=== PATIENT | male | born 1950 | race Asian ===

== ENCOUNTER 2017-06-27 08:00 | Inpatient (IN) | payer OTHER ==
[~2017-06-27] VITALS: Ht 157.5 cm; Wt 62.9 kg
[~2017-06-27 08:00] MED LIST: ALBU2.5V5 INH; BUDE10.2 INH; CLOP75TA PO; Doxycycline Hyclate PO; FURO-68 PO; LISI-338 PO; LISI20TA PO; METO-239 PO; MONT10TA9 PO; POTA20TA4 PO; PROAIR HFA8.5 GM INH; SIMV20TA3 PO
--- NOTE | 2017-06-27 08:03 | PHYS DOC ---
Past Medical History Past Medical History: Asthma, CAD, COPD, Hypertension, PA, Other Additional Past Medical Histor: AORTIC STENOSIS Past Surgical History: Angioplasty, Other Additional Past Surgical Histo: RIGHT BKA Alcohol Use: None Drug Use: None Adult General Chief Complaint Chief Complaint: SHORTNESS OF BREATH HPI HPI Patient is a 66 year old male who presents with shortness breath. He states his been going on for several weeks and this morning he got worse. He has been having a cough that's been productive with white sputum for several weeks. Last night he tried breathing treatment that helped a little bit. Upon arrival EMS noted that he was breathing proximal to 30 times a minute and his O2 sat on room air was 93%. They gave him a DuoNeb and he felt improvement. He denies any fevers chills nausea or vomiting. He did become nauseated on the EMS ride over here however that just started while he was in the truck. According to family he 's been having this cough for several weeks and is been using his inhalers especially at night several times. His blood pressures been on the lower end of normal and his daughters told him to take his blood pressure before he takes his medicine and over the last 4 days he's not been taking any blood pressure medicines. He denies any chest pain nausea vomiting or diarrhea. Review of Systems Review of Systems Constitutional: Denies fever or chills [] Eyes: Denies change in visual acuity, redness, or eye pain [] HENT: Denies nasal congestion or sore throat [] Respiratory: Denies cough or shortness of breath [] Cardiovascular: No additional information not addressed in HPI [] GI: Denies abdominal pain, nausea, vomiting, bloody stools or diarrhea [] : Denies dysuria or hematuria [] Musculoskeletal: Denies back pain or joint pain [] Integument: Denies rash or skin lesions [] Neurologic: Denies headache, focal weakness or sensory changes [] Endocrine: Denies polyuria or polydipsia [] All other systems were reviewed and found to be within normal limits, except as documented in this note. Current Medications Current Medications Current Medications Medications (Trade) Dose Ordered Sig/Lucía Start Time Stop Time Status Last Admin Dose Admin Albuterol/ Ipratropium (Duoneb) 3 ml 1X ONCE 06/27/17 08:15 06/27/17 08:16 DC 06/27/17 08:10 3 ML Azithromycin 250 ml @ 250 mls/hr 1X ONCE 06/27/17 09:45 06/27/17 10:44 Methylprednisolone Sodium Succinate (SOLU-Medrol 125MG VIAL) 125 mg 1X ONCE 06/27/17 08:15 06/27/17 08:16 DC 06/27/17 08:13 125 MG Allergies Allergies Allergies Coded Allergies Type Severity Reaction Last Updated Verified No Known Drug Allergies 05/16/15 No Physical Exam Physical Exam Constitutional: Well developed, well nourished, no acute distress, non-toxic appearance. [] HENT: Normocephalic, atraumatic, bilateral external ears normal, oropharynx moist, no oral exudates, nose normal. [] Eyes: PERRLA, EOMI, conjunctiva normal, no discharge. [] Neck: Normal range of motion, no tenderness, supple, no stridor. [] Cardiovascular:Heart rate regular rhythm, no murmur [] Lungs & Thorax: Bilateral breath sounds decreased the bases with moderate expiratory wheezing, worse on the right Abdomen: Bowel sounds normal, soft, no tenderness, no masses, no pulsatile masses. [] Skin: Warm, dry, no erythema, no rash. [] Back: No tenderness, no CVA tenderness. [] Extremities: No tenderness, no cyanosis, no clubbing, ROM intact, no edema. [] Neurologic: Alert and oriented X 3, normal motor function, normal sensory function, no focal deficits noted. [] Psychologic: Affect normal, judgement normal, mood normal. [] Current Patient Data Vital Signs Vital Signs Date Time Temp Pulse Resp B/P (MAP) Pulse Ox O2 Delivery O2 Flow Rate FiO2 06/27/17 08:14 96 Room Air 06/27/17 08:00 98.0 95 24 150/86 (107) 98.0 Lab Values Laboratory Tests Test 06/27/17 07:55 06/27/17 08:32 White Blood Count 9.9 x10^3/uL (4.0-11.0) Red Blood Count 4.91 x10^6/uL (4.30-5.70) Hemoglobin 14.9 g/dL (13.0-17.5) Hematocrit 43.5 % (39.0-53.0) Mean Corpuscular Volume 89 fL (79-100) Mean Corpuscular Hemoglobin 30 pg (25-35) Mean Corpuscular Hemoglobin Concent 34 g/dL (31-37) Red Cell Distribution Width 12.9 % (11.5-14.5) Platelet Count 140 x10^3/uL (140-400) Neutrophils (%) (Auto) 63 % (31-73) Lymphocytes (%) (Auto) 12 % (24-48) L Monocytes (%) (Auto) 8 % (0-9) Eosinophils (%) (Auto) 16 % (0-3) H Basophils (%) (Auto) 1 % (0-3) Neutrophils # (Auto) 6.2 x10^3uL (1.8-7.7) Lymphocytes # (Auto) 1.2 x10^3/uL (1.0-4.8) Monocytes # (Auto) 0.8 x10^3/uL (0.0-1.1) Eosinophils # (Auto) 1.6 x10^3/uL (0.0-0.7) H Basophils # (Auto) 0.1 x10^3/uL (0.0-0.2) Segmented Neutrophils % 57 % (35-66) Band Neutrophils % 5 % (0-9) Lymphocytes % 17 % (24-48) L Monocytes % 4 % (0-10) Eosinophils % 16 % (0-5) H Basophils % 1 % (0-3) Platelet Estimate Adequate (ADEQUATE) Prothrombin Time 13.1 SEC (11.7-14.0) Prothrombin Time INR 1.1 (0.8-1.1) Sodium Level 139 mmol/L (136-145) Potassium Level 4.2 mmol/L (3.5-5.1) Chloride Level 103 mmol/L (98-107) Carbon Dioxide Level 24 mmol/L (21-32) Anion Gap 12 (6-14) Blood Urea Nitrogen 46 mg/dL (8-26) H Creatinine 1.4 mg/dL (0.7-1.3) H Estimated GFR (Cockcroft-Gault) 50.7 Glucose Level 103 mg/dL (70-99) H Lactic Acid Level 1.3 mmol/L (0.4-2.0) Calcium Level 9.1 mg/dL (8.5-10.1) Magnesium Level 2.3 mg/dL (1.8-2.4) Total Bilirubin 1.2 mg/dL (0.2-1.0) H Direct Bilirubin 0.3 mg/dL (0.0-0.2) H Aspartate Amino Transferase (AST) 26 U/L (15-37) Alanine Aminotransferase (ALT) 26 U/L (16-63) Alkaline Phosphatase 62 U/L (46-116) Creatine Kinase 479 U/L (39-308) H Creatine Kinase MB (Mass) 6.0 ng/mL (0.0-3.6) H Creatine Kinase MB Relative Index 1.3 % (0-4) Troponin I Quantitative < 0.017 ng/mL (0.000-0.055) [id number]-Type Natriuretic Peptide 485 pg/mL (0-124) H Total Protein 7.9 g/dL (6.4-8.2) Albumin 4.1 g/dL (3.4-5.0) Lipase 144 U/L (73-393) Thyroid Stimulating Hormone (TSH) 2.438 uIU/mL (0.358-3.74) Urine Collection Type Void Urine Color Yellow Urine Clarity Clear Urine pH 5.5 Urine Specific [place] 1.020 Urine Protein Negative mg/dL (NEG-TRACE) Urine Glucose (UA) Negative mg/dL (NEG) Urine Ketones (Stick) Trace mg/dL (NEG) Urine Blood Negative (NEG) Urine Nitrite Negative (NEG) Urine Bilirubin Negative (NEG) Urine Urobilinogen Dipstick 0.2 mg/dL (0.2 mg/dL) Urine Leukocyte Esterase Negative (NEG) Urine RBC Occ /HPF (0-2) Urine WBC Occ /HPF (0-4) Urine Squamous Epithelial Cells Few /LPF Urine Bacteria Few /HPF (0-FEW) Urine Mucus Mod /LPF Urine Opiates Screen Neg (NEG) Urine Methadone Screen Neg (NEG) Urine Barbiturates Neg (NEG) Urine Phencyclidine Screen Neg (NEG) Urine Amphetamine/Methamphetamine Neg (NEG) Urine Benzodiazepines Screen Neg (NEG) Urine Cocaine Screen Neg (NEG) Urine Cannabinoids Screen Neg (NEG) Urine Ethyl Alcohol Neg (NEG) Laboratory Tests 06/27/17 07:55 Laboratory Tests 06/27/17 07:55 EKG EKG EKG shows sinus rhythm with rate of 88 bpm without any concerning ST elevations elevations, T-wave inversion noted in 1 and aVL, V4 V5 V6, left axis deviation noted, QTC 412, as interpreted by me. EKG similar to one performed on June Radiology/Procedures Radiology/Procedures [facility] [address] [place] [address] IMAGING REPORT Signed PATIENT: KAL DUBON ACCOUNT: [id number] : 1950 LOCATION: ER AGE: 66 SEX: M EXAM STATUS: REG ER ORD. PHYSICIAN: DILCIA RIVERA MD REASON: shortness of air PROCEDURE: PORTABLE CHEST 1V Single view chest History:shortness of air An AP view of the chest is submitted. Comparison: 06/11/2016. Findings: There is transcatheter aortic valve replacement. There is no significant infiltrate, pleural effusion, or pneumothorax. The pericardial cardiac silhouette is within normal limits in size. The trachea is in the midline. No acute osseous abnormality is identified. Impression: 1. No acute radiographic abnormality is identified. DICTATED and SIGNED BY: NAMITA ELY MD DATE: 06/27/17 0842 CC: DILCIA RIVERA MD; ALLEGRA REYNOLDS MD ~ <Conclusion> Left ventricle systolic function is moderate to severely impaired. EF 30-35% There is severe hypokinesis in the mid-distal septum and anterior young. [place] appears akinetic. Doppler and Color Flow revealed moderate aortic regurgitation. There is severe valvular aortic stenosis. Calculated aortic valve area is 0.9 cm2 with maximum pressure gradient of 50.55 mmHg and mean pressure gradient of 34.39 mmHg. Peak velocity at 4 m/s. Doppler and Color Flow revealed mild mitral regurgitation. DICTATED and SIGNED BY: OMA WILLINGHAM MD DATE: 06/12/16 1503 Impressions: soa COPD CHF Status post aortic valve replacement Coronary artery disease with stents Hypertension Dyslipidemia Course & Med Decision Making Course & Med Decision Making Pertinent Labs and Imaging studies reviewed. (See chart for details) EKG is similar to one that was performed for a year ago. He denies any chest pain. His labs do not show any acute abnormality's. His chest x-rays negative. He received DuoNeb nebs, Solu-Medrol and will start azithromycin. I believe he is likely has a COPD exacerbation at this time. We'll consult pulmonary and cardiology. Spoke with Dr. Chambers who is agreeable to admit the patient. He is in stable condition at this time. Dragon Disclaimer Dragon Disclaimer This electronic medical record was generated, in whole or in part, using a voice recognition dictation system. Departure Departure Impression: Primary Impression: COPD exacerbation Disposition: ADMITTED INPATIENT Admitting Physician: Lloyd Chambers Condition: STABLE Referrals: ALLEGRA REYNOLDS MD (PCP) DILCIA RIVERA MD Jun 27, 2017 08:02
[2017-06-27] MEDS ORDERED: methylPREDNISolone SOD SUCC PF 125 MG/2 ML VIAL. IV ONE (08:15)
[2017-06-27] MEDS ORDERED: IPRATRPIUM/ALBUTEROL 0.5/2.5MG 3 ML NEBU. NEB ONE (08:15)
[2017-06-27 08:23] LABS: BASO # 0.1 x10^3/uL (0.0-0.2); BASO % 1 % (0-3); EOS % 16 % (0-3); HEMATOCRIT 43.5 % (39.0-53.0); HEMOGLOBIN 14.9 g/dL (13.0-17.5); LYMPH # 1.2 x10^3/uL (1.0-4.8); LYMPH % 12 % (24-48); MEAN CORPUSCULAR HEMOGLOBIN 30 pg (25-35); MEAN CORPUSCULAR HGB CONC 34 g/dL (31-37); MEAN CORPUSCULAR VOLUME 89 fL (79-100); MONO % 8 % (0-9); NEUT % 63 % (31-73); PLATELET COUNT 140 x10^3/uL (140-400); RED BLOOD COUNT 4.91 x10^6/uL (4.30-5.70); RED CELL DISTRIBUTION WIDTH 12.9 % (11.5-14.5); WHITE BLOOD COUNT 9.9 x10^3/uL (4.0-11.0)
[2017-06-27 08:31] LABS: INR 1.1 (0.8-1.1); PROTHROMBIN TIME PATIENT 13.1 SEC (11.7-14.0)
[2017-06-27 08:32] LABS: CALCIUM 9.1 mg/dL (8.5-10.1); CREATININE 1.4 mg/dL (0.7-1.3); GFR 50.7; POTASSIUM 4.2 mmol/L (3.5-5.1)
[2017-06-27 08:37] LABS: ALBUMIN 4.1 g/dL (3.4-5.0); DIRECT BILIRUBIN 0.3 mg/dL (0.0-0.2); MAGNESIUM 2.3 mg/dL (1.8-2.4); TOTAL BILIRUBIN 1.2 mg/dL (0.2-1.0); TOTAL PROTEIN 7.9 g/dL (6.4-8.2)
[2017-06-27 08:44] LABS: BILIRUBIN,URINE NEGATIVE (NEG); GLUCOSE,URINE NEGATIVE (NEG); NITRITE,URINE NEGATIVE (NEG); PH,URINE 5.5; PROTEIN,URINE NEGATIVE (NEG-TRACE); UROBILINOGEN,URINE 0.2 mg/dL (0.2 mg/dL)
--- NOTE | 2017-06-27 08:50 | RAD ---
Single view chest History:shortness of air An AP view of the chest is submitted. Comparison: 06/11/2016. Findings: There is transcatheter aortic valve replacement. There is no significant infiltrate, pleural effusion, or pneumothorax. The pericardial cardiac silhouette is within normal limits in size. The trachea is in the midline. No acute osseous abnormality is identified. Impression: 1. No acute radiographic abnormality is identified.
[2017-06-27 08:57] LABS: BARBITURATES NEG (NEG); BENZODIAZEPINES NEG (NEG); CANNABINOIDS NEG (NEG); COCAINE NEG (NEG); METHADONE NEG (NEG); OPIATES NEG (NEG); PHENCYCLIDINE NEG (NEG)
[2017-06-27 08:58] LABS: BACTERIA,URINE FEW /HPF (0-FEW); RBC,URINE OCC /HPF (0-2); SQUAMOUS EPITHELIAL CELL,UR FEW /LPF; WBC,URINE OCC /HPF (0-4)
[2017-06-27 09:22] LABS: % BASOS 1 % (0-3); % EOS 16 % (0-5)
[2017-06-27 09:23] LABS: PLT ESTIMATE ADEQUATE (ADEQUATE)
[2017-06-27] MEDS ORDERED: ONDANSETRON PF 4 MG/2 ML VIAL. IV PRN (09:45)
[2017-06-27] MEDS ORDERED: AZITHRMYCN 500MG IVPB FOR OMNI 250 ML IV ONE (09:45)
[2017-06-27] MEDS ORDERED: ALBUTEROL SULFATE 2.5 MG/3 ML NEBU. NEB PRN (09:45)
[2017-06-27] MEDS ORDERED: ALBUTEROL SULFATE INH PRN (10:00)
[2017-06-27] MEDS ORDERED: SPIR25TA3 PO (10:02)
--- NOTE | 2017-06-27 10:18 | PDOC ---
Provider Note Provider Note Patient seen. History and Physical dictated. See dictation#[id number] AYANNA DUMONT MD Jun 27, 2017 10:18
--- NOTE | 2017-06-27 10:50 | HP ---
ADMIT DATE: 06/27/2017 DICTATING PHYSICIAN: Lloyd Chambers MD ADMITTING PHYSICIAN: Franco Sullivan MD HISTORY OF PRESENT ILLNESS: This 66-year-old male has been having cough, which is mainly dry with worsening dyspnea for the last 4 weeks. He did not have any fever or chills. Mucus is scanty and mostly cough is dry. Mucus is clear most of the times. He denies any fever, chills, nausea, vomiting. As per family for the last 4 days, his blood pressures have been in low 80s and 90s systolic, and he has been holding his lisinopril and metoprolol for the last 4 days. However, as his dyspnea got worse, he was brought to the Emergency Room today. In the Emergency Room, the patient was noted to have exacerbation of COPD. Chest x-ray was negative for any acute changes. The patient was given IV Solu-Medrol and breathing treatment in the Emergency Room and was admitted for further evaluation and management. SYSTEMS REVIEW: At present time, the patient is complaining of dry cough, congestion and fatigue. He denies any fever, chills, nausea, vomiting, diarrhea, constipation, leg pain, swelling of the left leg, headaches, body aches or any other issues. Translation was done by the family member. Other systems reviewed and are negative. As per family, the patient gets sick every June with cough and congestion. PAST MEDICAL HISTORY: The patient was last admitted here in 06/2016. At that time, the patient was noted to have critical aortic stenosis and was referred to [facility] [place] for transaortic valve replacement. He also has a history of hypertension, COPD, congestive heart failure, coronary artery disease with previous stent in LAD. He has a history of congestive failure with ejection fraction of 30% on previous echocardiogram. PAST SURGICAL HISTORY: Right below-knee amputation with prosthesis, cardiac catheterization and LAD stent in the past, transaortic valve replacement in 06/2016 at [facility] [place]. SOCIAL HISTORY: The patient smoked for 20 years, he quit 21 years ago. No history of alcoholism or drug abuse. ALLERGIES: None known any. MEDICATIONS: I have reviewed the medications. As noted earlier, lisinopril and metoprolol were held for the last 4 days per family members because of low blood pressure. FAMILY HISTORY: Reviewed and noncontributory at this time. PHYSICAL EXAMINATION: VITAL SIGNS: Temperature 98, pulse 95 per minute, respirations 24 per minute, blood pressure 150/86, O2 sats 94% on room air. GENERAL: The patient is alert, oriented, very weak and chronically ill and in moderate respiratory distress. He is very tired and falls asleep quickly. EYES: Pupils reacting to light. Conjunctivae pale. Sclerae muddy. HEENT: Throat congested. SKIN: Warm and dry. There is no cyanosis. NECK: Supple. JVP normal. No thyromegaly. Trachea midline. LUNGS: Bilateral wheezing. CARDIOVASCULAR: S1, S2 regular. ABDOMEN: Soft, nontender, no guarding, no rigidity. Bowel sounds present. EXTREMITIES: The patient has a right below-knee amputation with prosthesis. Left lower extremity, no swelling, calf tenderness, or cyanosis. CENTRAL NERVOUS SYSTEM: Very weak and sleepy, not communicating much, most of the information obtained from the family. LABORATORY DATA: WBC count 9.9, hemoglobin 14.9, platelet count is 440,000, MCV 89. INR 1.1. Sodium 139, potassium 4.2, BUN 46, creatinine 1.4. Total bilirubin 1.2. CK 479, troponin less than 0.017. BNP is 485, total protein 7.9, albumin 4.1, lipase 144. TSH 2.438. UA is negative except for occasional rbc's, and wbc's, few bacteria. Urine drug screen is negative. Chest x-ray does not show any acute changes. IMPRESSION: 1. Acute exacerbation of chronic obstructive pulmonary disease. Clinically, the patient does not have any viral infection. He has been started on Zithromax in the Emergency Room. 2. Acute renal failure, creatinine is 1.4, BUN is 46. We do not have his baseline creatinine available at this time. He may have chronic kidney disease; last year, his creatinine was 1.4 on admission, but at that time, he was also very ill. 3. Hypertension. 4. Recent hypotension at home. 5. Coronary artery disease with history of LAD stent placement. 6. Right below-knee amputation. 7. Hyperlipidemia. 8. Systolic congestive heart failure with ejection fraction of 30-35% previously. 9. History of critical aortic stenosis with a transaortic valve replacement at [facility] [place] in 06/2016. PLAN: Condition and treatment discussed with the patient and the family extensively. I will start him on IV steroids, continue Zithromax. Consult Dr. Broderick for pulmonary evaluation and management. Consult [facility] for cardiology evaluation and management. For details, please refer to the orders. Recheck labs in a.m. I will hold lisinopril and metoprolol at this time. Because of his persistent cough previously, it would be better to probably switch him to losartan when it is restarted. I will also hold Lasix and potassium at this time and monitor renal function. I will not give any IV fluids as at this time, but just hold diuretics and see how he does. For details, please refer to the orders. LLOYD CHAMBERS MD DR: FAVIOLA/brandon JOB#: [id number] / [id number] Franco Mayorga MD
[2017-06-27] MEDS: IPRATRPIUM/ALBUTEROL 0.5/2.5MG 3 ML NEBU. NEB SCH ×3 (11:02→19:26)
[2017-06-27 11:11] VITALS: BP 105/68
--- NOTE | 2017-06-27 11:35 | EKG ---
[facility] [address] [place] [address] Test Date: 2017-06-27 Test Time: 08:07:43 Pat Name: KAL DUBON Department: Room: 563 1 Gender: M Miter Cutter: : 1950 Requested By: DILCIA RIVERA Order Number: [id number] Reading MD: Robbie Pires MD Measurements Intervals [place] Rate: 88 P: 47 NV: 176 QRS: 0 QRSD: 80 T: 129 QT: 338 QTc: 412 Interpretive Statements SINUS RHYTHM CONSISTENT WITH ANTERIOR INFARCT Electronically Signed On 06-27-2017 15:51:22 NET COORDINATOR by Robbie Pires MD
[2017-06-27] MEDS: CLOPIDOGREL BISULFATE 75 MG TABLET PO SCH (11:42)
[2017-06-27] MEDS: METOPROLOL SUCC 24HR ER 25 MG TAB.ER.24H. PO SCH (11:42)
[2017-06-27] MEDS: methylPREDNISolone SOD SUCC PF 125 MG/2 ML VIAL. IV SCH (13:59)
[2017-06-27 14:56] VITALS: BP 124/69
--- NOTE | 2017-06-27 16:24 | PDOC2 ---
CARDIOLOGY CONSULT NOTE CHEIF COMPLAINT: Cough and dyspnea Problems: HPI: 66-year-old man well-known to us from his previous admission who comes into the hospital with the frequent coughing and some mild dyspnea. Denies any specific angina. He does have some chest tightness when coughing. No syncope or palpitations. Reports compliance with his medications. No significant lower extremity edema, orthopnea or PND. He has struggled with chronic coughing issues for quite some time. Previously prior to his aortic valve being replaced it was felt that his dyspnea and coughing may have been related to his aortic stenosis. Ultimately, even after his aortic valve replacement he is still struggled with intermittent coughing dyspnea. Reports compliance with his medications. He does not smoke. PMHX: 1. Coronary artery disease status post PCI to the LAD remotely with patent stent last year and cardiac catheterization 2. Severe aortic stenosis status post transcatheter aortic valve replacement with Cira 3. PAD s/p amputation of the RLE 4. 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 Possible COPD/Chronic cough SOCHX: No alcohol, tobacco or illicit drug use. FAMHX: Noncontributory. CURRENT MEDS: Current Medications Medications (Trade) Dose Ordered Sig/Lucía Start Time Stop Time Status Last Admin Dose Admin Acetaminophen (Tylenol) 650 mg PRN Q6HRS PRN 06/27/17 10:00 Albuterol Sulfate (Ventolin Neb Soln) 2.5 mg PRN Q6HRS PRN 06/27/17 09:45 Albuterol/ Ipratropium (Duoneb) 3 ml RTQID 06/27/17 12:00 06/27/17 14:57 3 ML Azithromycin 250 ml @ 250 mls/hr 1X ONCE 06/27/17 09:45 06/27/17 10:44 DC 06/27/17 09:55 250 MLS/HR Clopidogrel Bisulfate (Plavix) 75 mg DAILY 06/27/17 11:00 06/27/17 11:42 75 MG Guaifenesin (Mucinex) 600 mg BID 06/27/17 11:00 06/27/17 11:42 600 MG Methylprednisolone Sodium Succinate (SOLU-Medrol 125MG VIAL) 60 mg [id number] 06/27/17 14:00 06/27/17 13:59 60 MG Metoprolol Succinate (Toprol Xl) 25 mg DAILY 06/27/17 11:00 06/27/17 11:42 25 MG Montelukast Sodium (Singulair) 10 mg HS 06/27/17 21:00 Non-Formulary Medication 1 inh PRN Q4-6HRS PRN 06/27/17 10:00 UNV Ondansetron HCl (Zofran) 4 mg PRN Q8HRS PRN 06/27/17 09:45 06/28/17 09:44 Simvastatin (Zocor) 20 mg HS 06/27/17 21:00 ALLERGIES: Allergies Coded Allergies Type Severity Reaction Last Updated Verified No Known Drug Allergies 05/16/15 No ROS: Negative for 10 out of 14 systems reviewed unless otherwise mentioned above in history of present illness. PHYSICAL EXAM: Vital Signs: Vital Signs Date Time Temp Pulse Resp B/P (MAP) Pulse Ox O2 Delivery O2 Flow Rate FiO2 06/27/17 14:57 Nasal Cannula 1.0 06/27/17 14:56 98.1 94 18 124/69 (87) 95 98.1 Physical Exam: GEN.: No apparent distress. Alert and oriented. HEENT: Head is normocephalic, atraumatic NECK: Supple. LUNGS: Clear to auscultation. HEART: RRR, S1, S2 present. Peripheral pulses intact soft systolic murmur ABDOMEN: Soft, nontender. Positive bowel sounds. EXTREMITIES: Without any cyanosis. NEUROLOGIC: Normal speech, normal tone PSYCHIATRIC: Normal affect, normal mood. SKIN: No ulcerations DIAGNOSTIC TESTING: Chest x-ray, labs and BNP reviewed. EKG unremarkable for any acute pathology. Known prior anterior infarct. Lab Laboratory Tests Test 06/27/17 07:55 06/27/17 08:32 White Blood Count 9.9 x10^3/uL (4.0-11.0) Red Blood Count 4.91 x10^6/uL (4.30-5.70) Hemoglobin 14.9 g/dL (13.0-17.5) Hematocrit 43.5 % (39.0-53.0) Mean Corpuscular Volume 89 fL (79-100) Mean Corpuscular Hemoglobin 30 pg (25-35) Mean Corpuscular Hemoglobin Concent 34 g/dL (31-37) Red Cell Distribution Width 12.9 % (11.5-14.5) Platelet Count 140 x10^3/uL (140-400) Neutrophils (%) (Auto) 63 % (31-73) Lymphocytes (%) (Auto) 12 % (24-48) L Monocytes (%) (Auto) 8 % (0-9) Eosinophils (%) (Auto) 16 % (0-3) H Basophils (%) (Auto) 1 % (0-3) Neutrophils # (Auto) 6.2 x10^3uL (1.8-7.7) Lymphocytes # (Auto) 1.2 x10^3/uL (1.0-4.8) Monocytes # (Auto) 0.8 x10^3/uL (0.0-1.1) Eosinophils # (Auto) 1.6 x10^3/uL (0.0-0.7) H Basophils # (Auto) 0.1 x10^3/uL (0.0-0.2) Segmented Neutrophils % 57 % (35-66) Band Neutrophils % 5 % (0-9) Lymphocytes % 17 % (24-48) L Monocytes % 4 % (0-10) Eosinophils % 16 % (0-5) H Basophils % 1 % (0-3) Platelet Estimate Adequate (ADEQUATE) Prothrombin Time 13.1 SEC (11.7-14.0) Prothromb Time International Ratio 1.1 (0.8-1.1) Sodium Level 139 mmol/L (136-145) Potassium Level 4.2 mmol/L (3.5-5.1) Chloride Level 103 mmol/L (98-107) Carbon Dioxide Level 24 mmol/L (21-32) Anion Gap 12 (6-14) Blood Urea Nitrogen 46 mg/dL (8-26) H Creatinine 1.4 mg/dL (0.7-1.3) H Estimated GFR (Cockcroft-Gault) 50.7 Glucose Level 103 mg/dL (70-99) H Lactic Acid Level 1.3 mmol/L (0.4-2.0) Calcium Level 9.1 mg/dL (8.5-10.1) Total Bilirubin 1.2 mg/dL (0.2-1.0) H Direct Bilirubin 0.3 mg/dL (0.0-0.2) H Aspartate Amino Transf (AST/SGOT) 26 U/L (15-37) Alkaline Phosphatase 62 U/L (46-116) Creatine Kinase 479 U/L (39-308) H Creatine Kinase MB (Mass) 6.0 ng/mL (0.0-3.6) H Creatine Kinase MB Relative Index 1.3 % (0-4) Total Protein 7.9 g/dL (6.4-8.2) Albumin 4.1 g/dL (3.4-5.0) Lipase 144 U/L (73-393) Thyroid Stimulating Hormone (TSH) 2.438 uIU/mL (0.358-3.74) Urine Collection Type Void Urine Color Yellow Urine Clarity Clear Urine pH 5.5 Urine Specific [place] 1.020 Urine Protein Negative mg/dL (NEG-TRACE) Urine Glucose (UA) Negative mg/dL (NEG) Urine Ketones (Stick) Trace mg/dL (NEG) Urine Blood Negative (NEG) Urine Nitrite Negative (NEG) Urine Bilirubin Negative (NEG) Urine Urobilinogen Dipstick 0.2 mg/dL (0.2 mg/dL) Urine Leukocyte Esterase Negative (NEG) Urine RBC Occ /HPF (0-2) Urine WBC Occ /HPF (0-4) Urine Squamous Epithelial Cells Few /LPF Urine Bacteria Few /HPF (0-FEW) Urine Mucus Mod /LPF Urine Opiates Screen Neg (NEG) Urine Methadone Screen Neg (NEG) Urine Barbiturates Neg (NEG) Urine Phencyclidine Screen Neg (NEG) Urine Amphetamine/Methamphetamine Neg (NEG) Urine Benzodiazepines Screen Neg (NEG) Urine Cocaine Screen Neg (NEG) Urine Cannabinoids Screen Neg (NEG) Urine Ethyl Alcohol Neg (NEG) ASSESSMENT: 1. Chronic cough likely secondary to acute COPD exacerbation. His pulmonary evaluation is unclear but would be useful to obtain [facility] records for PFTs and/or Dr. Chambers's office records. 2. Known chronic systolic heart failure, currently compensated. Minimally elevated BNP and no evidence of heart failure on examination. 3. Known aortic stenosis status post successful transcatheter aortic valve replacement PLAN: 1. At this present time from a cardiovascular perspective could continue his home medications. We will obtain an echocardiogram to ensure that his aortic valve is in stable position and by examination it appears to be. He does not appear to be a daily comes in heart failure. No aggressive need for diuresis at this time. Supportive care from a cardiac standpoint with treatment of his pulmonary issues. Thank you for this consultation. OMA WILLINGHAM MD Jun 27, 2017 16:24
--- NOTE | 2017-06-27 16:43 | PDOC ---
PULMONARY PROGRESS NOTES Vitals Vital Signs Date Time Temp Pulse Resp B/P (MAP) Pulse Ox O2 Delivery O2 Flow Rate FiO2 06/27/17 14:57 Nasal Cannula 1.0 06/27/17 14:56 98.1 94 18 124/69 (87) 95 98.1 General: Alert Lungs: Clear Cardiovascular: S1 Abdomen: Soft Extremities: No Edema Labs Laboratory Tests Test 06/27/17 07:55 06/27/17 08:32 06/27/17 15:40 White Blood Count 9.9 x10^3/uL (4.0-11.0) Red Blood Count 4.91 x10^6/uL (4.30-5.70) Hemoglobin 14.9 g/dL (13.0-17.5) Hematocrit 43.5 % (39.0-53.0) Mean Corpuscular Volume 89 fL (79-100) Mean Corpuscular Hemoglobin 30 pg (25-35) Mean Corpuscular Hemoglobin Concent 34 g/dL (31-37) Red Cell Distribution Width 12.9 % (11.5-14.5) Platelet Count 140 x10^3/uL (140-400) Neutrophils (%) (Auto) 63 % (31-73) Lymphocytes (%) (Auto) 12 % (24-48) Monocytes (%) (Auto) 8 % (0-9) Eosinophils (%) (Auto) 16 % (0-3) Basophils (%) (Auto) 1 % (0-3) Neutrophils # (Auto) 6.2 x10^3uL (1.8-7.7) Lymphocytes # (Auto) 1.2 x10^3/uL (1.0-4.8) Monocytes # (Auto) 0.8 x10^3/uL (0.0-1.1) Eosinophils # (Auto) 1.6 x10^3/uL (0.0-0.7) Basophils # (Auto) 0.1 x10^3/uL (0.0-0.2) Segmented Neutrophils % 57 % (35-66) Band Neutrophils % 5 % (0-9) Lymphocytes % 17 % (24-48) Monocytes % 4 % (0-10) Eosinophils % 16 % (0-5) Basophils % 1 % (0-3) Platelet Estimate Adequate (ADEQUATE) Prothrombin Time 13.1 SEC (11.7-14.0) Prothromb Time International Ratio 1.1 (0.8-1.1) Sodium Level 139 mmol/L (136-145) Potassium Level 4.2 mmol/L (3.5-5.1) Chloride Level 103 mmol/L (98-107) Carbon Dioxide Level 24 mmol/L (21-32) Anion Gap 12 (6-14) Blood Urea Nitrogen 46 mg/dL (8-26) Creatinine 1.4 mg/dL (0.7-1.3) Estimated GFR (Cockcroft-Gault) 50.7 Glucose Level 103 mg/dL (70-99) Lactic Acid Level 1.3 mmol/L (0.4-2.0) Calcium Level 9.1 mg/dL (8.5-10.1) Magnesium Level 2.3 mg/dL (1.8-2.4) Total Bilirubin 1.2 mg/dL (0.2-1.0) Direct Bilirubin 0.3 mg/dL (0.0-0.2) Aspartate Amino Transf (AST/SGOT) 26 U/L (15-37) Alanine Aminotransferase (ALT/SGPT) 26 U/L (16-63) Alkaline Phosphatase 62 U/L (46-116) Creatine Kinase 479 U/L (39-308) Creatine Kinase MB (Mass) 6.0 ng/mL (0.0-3.6) Creatine Kinase MB Relative Index 1.3 % (0-4) Troponin I Quantitative < 0.017 ng/mL (0.000-0.055) < 0.017 ng/mL (0.000-0.055) OC-Vqk-N-Type Natriuretic Peptide 485 pg/mL (0-124) Total Protein 7.9 g/dL (6.4-8.2) Albumin 4.1 g/dL (3.4-5.0) Lipase 144 U/L (73-393) Thyroid Stimulating Hormone (TSH) 2.438 uIU/mL (0.358-3.74) Urine Collection Type Void Urine Color Yellow Urine Clarity Clear Urine pH 5.5 Urine Specific [place] 1.020 Urine Protein Negative mg/dL (NEG-TRACE) Urine Glucose (UA) Negative mg/dL (NEG) Urine Ketones (Stick) Trace mg/dL (NEG) Urine Blood Negative (NEG) Urine Nitrite Negative (NEG) Urine Bilirubin Negative (NEG) Urine Urobilinogen Dipstick 0.2 mg/dL (0.2 mg/dL) Urine Leukocyte Esterase Negative (NEG) Urine RBC Occ /HPF (0-2) Urine WBC Occ /HPF (0-4) Urine Squamous Epithelial Cells Few /LPF Urine Bacteria Few /HPF (0-FEW) Urine Mucus Mod /LPF Urine Opiates Screen Neg (NEG) Urine Methadone Screen Neg (NEG) Urine Barbiturates Neg (NEG) Urine Phencyclidine Screen Neg (NEG) Urine Amphetamine/Methamphetamine Neg (NEG) Urine Benzodiazepines Screen Neg (NEG) Urine Cocaine Screen Neg (NEG) Urine Cannabinoids Screen Neg (NEG) Urine Ethyl Alcohol Neg (NEG) Laboratory Tests Test 06/27/17 07:55 06/27/17 08:32 06/27/17 15:40 White Blood Count 9.9 x10^3/uL (4.0-11.0) Red Blood Count 4.91 x10^6/uL (4.30-5.70) Hemoglobin 14.9 g/dL (13.0-17.5) Hematocrit 43.5 % (39.0-53.0) Mean Corpuscular Volume 89 fL (79-100) Mean Corpuscular Hemoglobin 30 pg (25-35) Mean Corpuscular Hemoglobin Concent 34 g/dL (31-37) Red Cell Distribution Width 12.9 % (11.5-14.5) Platelet Count 140 x10^3/uL (140-400) Neutrophils (%) (Auto) 63 % (31-73) Lymphocytes (%) (Auto) 12 % (24-48) Monocytes (%) (Auto) 8 % (0-9) Eosinophils (%) (Auto) 16 % (0-3) Basophils (%) (Auto) 1 % (0-3) Neutrophils # (Auto) 6.2 x10^3uL (1.8-7.7) Lymphocytes # (Auto) 1.2 x10^3/uL (1.0-4.8) Monocytes # (Auto) 0.8 x10^3/uL (0.0-1.1) Eosinophils # (Auto) 1.6 x10^3/uL (0.0-0.7) Basophils # (Auto) 0.1 x10^3/uL (0.0-0.2) Segmented Neutrophils % 57 % (35-66) Band Neutrophils % 5 % (0-9) Lymphocytes % 17 % (24-48) Monocytes % 4 % (0-10) Eosinophils % 16 % (0-5) Basophils % 1 % (0-3) Platelet Estimate Adequate (ADEQUATE) Prothrombin Time 13.1 SEC (11.7-14.0) Prothromb Time International Ratio 1.1 (0.8-1.1) Sodium Level 139 mmol/L (136-145) Potassium Level 4.2 mmol/L (3.5-5.1) Chloride Level 103 mmol/L (98-107) Carbon Dioxide Level 24 mmol/L (21-32) Anion Gap 12 (6-14) Blood Urea Nitrogen 46 mg/dL (8-26) Creatinine 1.4 mg/dL (0.7-1.3) Estimated GFR (Cockcroft-Gault) 50.7 Glucose Level 103 mg/dL (70-99) Lactic Acid Level 1.3 mmol/L (0.4-2.0) Calcium Level 9.1 mg/dL (8.5-10.1) Magnesium Level 2.3 mg/dL (1.8-2.4) Total Bilirubin 1.2 mg/dL (0.2-1.0) Direct Bilirubin 0.3 mg/dL (0.0-0.2) Aspartate Amino Transf (AST/SGOT) 26 U/L (15-37) Alanine Aminotransferase (ALT/SGPT) 26 U/L (16-63) Alkaline Phosphatase 62 U/L (46-116) Creatine Kinase 479 U/L (39-308) Creatine Kinase MB (Mass) 6.0 ng/mL (0.0-3.6) Creatine Kinase MB Relative Index 1.3 % (0-4) Troponin I Quantitative < 0.017 ng/mL (0.000-0.055) < 0.017 ng/mL (0.000-0.055) ED-Odj-G-Type Natriuretic Peptide 485 pg/mL (0-124) Total Protein 7.9 g/dL (6.4-8.2) Albumin 4.1 g/dL (3.4-5.0) Lipase 144 U/L (73-393) Thyroid Stimulating Hormone (TSH) 2.438 uIU/mL (0.358-3.74) Urine Collection Type Void Urine Color Yellow Urine Clarity Clear Urine pH 5.5 Urine Specific [place] 1.020 Urine Protein Negative mg/dL (NEG-TRACE) Urine Glucose (UA) Negative mg/dL (NEG) Urine Ketones (Stick) Trace mg/dL (NEG) Urine Blood Negative (NEG) Urine Nitrite Negative (NEG) Urine Bilirubin Negative (NEG) Urine Urobilinogen Dipstick 0.2 mg/dL (0.2 mg/dL) Urine Leukocyte Esterase Negative (NEG) Urine RBC Occ /HPF (0-2) Urine WBC Occ /HPF (0-4) Urine Squamous Epithelial Cells Few /LPF Urine Bacteria Few /HPF (0-FEW) Urine Mucus Mod /LPF Urine Opiates Screen Neg (NEG) Urine Methadone Screen Neg (NEG) Urine Barbiturates Neg (NEG) Urine Phencyclidine Screen Neg (NEG) Urine Amphetamine/Methamphetamine Neg (NEG) Urine Benzodiazepines Screen Neg (NEG) Urine Cocaine Screen Neg (NEG) Urine Cannabinoids Screen Neg (NEG) Urine Ethyl Alcohol Neg (NEG) Medications Active Scripts Medications Dose Route/Sig Max Daily Dose Days Date Category Spironolactone 25 Mg Tablet 25 Mg PO DAILY 06/27/17 Reported [Doxycycline Hyclate] 100 MG Tablet 100 Mg PO BID 05/19/15 Rx Lasix (Furosemide) 40 Mg Tablet 40 Mg PO DAILY 05/19/15 Rx Prinivil (Lisinopril) 20 Mg Tablet 20 Mg PO DAILY 05/19/15 Rx Klor-Con M20 (Potassium Chloride) 20 Meq Tablet.er 20 Meq PO DAILYWBKFT 05/19/15 Rx Symbicort 160-4.5 Mcg Inhaler (Budesonide/Formoterol Fumarate) 10.2 Gm Hfa.aer.ad 160 Mcg INH BID 05/16/15 Reported Albuterol Sulfate Neb Soln (Albuterol Sulfate) 2.5 Mg/3 Ml Vial.neb 2.5 Mg INH PRN Q6HRS PRN 05/16/15 Reported Metoprolol Succinate ( Xl ) (Metoprolol Succinate) 25 Mg Tab.er.24h 25 Mg PO DAILY 05/16/15 Reported Montelukast Sodium Tablet (Montelukast Sodium) 10 Mg Tablet 10 Mg PO HS 05/16/15 Reported Clopidogrel (Clopidogrel Bisulfate) 75 Mg Tablet 75 Mg PO DAILY 05/16/15 Reported Proair Hfa Inhaler (Albuterol Sulfate) 8.5 Gm Hfa.aer.ad 1 Inh INH PRN Q4-6HRS PRN 05/16/15 Reported Simvastatin 20 Mg Tablet 20 Mg PO HS 05/16/15 Reported Impression . DICTATED AECOPD THANKS DREW OWEN MD Jun 27, 2017 16:43
--- NOTE | 2017-06-27 16:53 | CONS ---
DATE OF CONSULTATION: 06/27/2017 ATTENDING PHYSICIAN: Dr. Lloyd Chambers. CONSULTING PHYSICIAN: Drew Owen MD REASON FOR CONSULTATION: The patient seen in pulmonary consultation at the request of Dr. Chambers for increasing shortness of breath and cough. HISTORY OF PRESENT ILLNESS: The patient is a 66-year-old who presented with shortness of breath for several weeks, cough productive of white sputum. He attempted breathing treatments at home with no significant improvement. EMS was summoned. He had O2 saturation on room air of 93%. DuoNeb were given with improvement. He denies fever, chills, night sweats. His x-ray was reviewed, no infiltrates. I was asked to see him in consultation. According to his family, he has had this cough now for several weeks, using inhalers at night, several times in the evening. No fever or chills. PAST MEDICAL HISTORY: Chronic obstructive pulmonary disease, questionable asthma component, coronary artery disease, hypertension, peripheral vascular disease, status post right below-knee amputation, aortic stenosis. PAST SURGICAL HISTORY: Right below-knee amputation. ALLERGIES: No known drug allergies. REVIEW OF SYSTEMS: As indicated above, otherwise a 10-point system was reviewed and negative. CURRENT MEDICATION: List was reviewed. Home medication list was likewise reviewed. PHYSICAL EXAMINATION: VITAL SIGNS: Stable. O2 saturation was greater than 92%. HEENT: Eyes, the sclerae were nonicteric. NECK: Jugular venous distention was not elevated. No lymphadenopathy. CHEST: Full expansion. LUNGS: Coarse breath sounds, no wheezes. CARDIOVASCULAR: Regular rate and rhythm with S1, S2, no S3. ABDOMEN: Soft, nontender, nondistended. EXTREMITIES: No clubbing, cyanosis or edema. Status post below-knee amputation. LABORATORY DATA: White count was normal. Electrolytes were noted. BUN was elevated, creatinine was elevated. Toxicology screen was negative. INR was 1.1. IMPRESSION: 1. Acute exacerbation of chronic obstructive pulmonary disease. 2. Cough secondary to above. 3. Hypertension. 4. Coronary artery disease with previous left anterior descending stent. 5. Right below knee amputation. 6. Aortic stenosis, status post transaortic valve replacement in in 06/2016. PLAN: 1. Recommend continue steroids and antibiotics. 2. Nebulized treatments. 3. If the patient continues to improve, will switch over to oral prednisone. 4. Follow Cardiology input. I do appreciate the privilege in sharing in the patient's care. DREW OWEN MD DR: LOUIS/brandon JOB#: [id number] / [id number]
[2017-06-27 19:00] VITALS: BP 114/68
[2017-06-27] MEDS: SIMVASTATIN 20 MG TABLET PO SCH (20:14)
[2017-06-27] MEDS: MONTELUKAST SODIUM 10 MG TABLET. PO SCH (20:14)
[2017-06-27] MEDS: ACETAMINOPHEN 325 MG TABLET. PO PRN (20:14)
[2017-06-27 23:00] VITALS: BP 107/64
[2017-06-28 03:02] VITALS: BP 109/67
[2017-06-28 06:17] LABS: BASO % 0 % (0-3); EOS % 0 % (0-3); HEMATOCRIT 38.6 % (39.0-53.0); HEMOGLOBIN 13.3 g/dL (13.0-17.5); LYMPH # 0.8 x10^3/uL (1.0-4.8); LYMPH % 6 % (24-48); MEAN CORPUSCULAR HEMOGLOBIN 31 pg (25-35); MEAN CORPUSCULAR HGB CONC 34 g/dL (31-37); MEAN CORPUSCULAR VOLUME 89 fL (79-100); MONO % 8 % (0-9); NEUT % 86 % (31-73); PLATELET COUNT 137 x10^3/uL (140-400); RED BLOOD COUNT 4.35 x10^6/uL (4.30-5.70); RED CELL DISTRIBUTION WIDTH 12.8 % (11.5-14.5); WHITE BLOOD COUNT 13.7 x10^3/uL (4.0-11.0)
[2017-06-28 06:48] LABS: ALBUMIN 3.6 g/dL (3.4-5.0); CALCIUM 8.9 mg/dL (8.5-10.1); CREATININE 1.4 mg/dL (0.7-1.3); GFR 50.7; POTASSIUM 4.5 mmol/L (3.5-5.1); TOTAL BILIRUBIN 0.5 mg/dL (0.2-1.0); TOTAL PROTEIN 7.1 g/dL (6.4-8.2)
[2017-06-28 07:00] VITALS: BP 133/72
[2017-06-28] MEDS: IPRATRPIUM/ALBUTEROL 0.5/2.5MG 3 ML NEBU. NEB SCH ×4 (08:19→20:00)
[2017-06-28] MEDS: CLOPIDOGREL BISULFATE 75 MG TABLET PO SCH (08:47)
[2017-06-28] MEDS: METOPROLOL SUCC 24HR ER 25 MG TAB.ER.24H. PO SCH (08:48)
[2017-06-28] MEDS: methylPREDNISolone SOD SUCC PF 125 MG/2 ML VIAL. IV SCH ×2 (08:48→13:59)
--- NOTE | 2017-06-28 10:52 | PDOC ---
IM PROGRESS NOTES- Subjective Subjective C/o cough,dyspnea. Objective Vitals Vital Signs Date Time Temp Pulse Resp B/P (MAP) Pulse Ox O2 Delivery O2 Flow Rate FiO2 06/28/17 08:48 80 133/72 06/28/17 08:20 96 Nasal Cannula 1.0 06/28/17 07:00 97.9 20 97.9 Input & Output Intake and Output 06/28/17 07:00 Intake Total 1080 ml Output Total 900 ml Balance 180 ml Intake Oral 1080 ml Output Urine Total 900 ml Physical Exam Physical Exam GENERAL: The patient is alert, oriented, very weak and chronically ill and in moderate respiratory distress. He is very tired and falls asleep quickly. EYES: Pupils reacting to light. Conjunctivae pale. Sclerae muddy. HEENT: Throat congested. SKIN: Warm and dry. There is no cyanosis. NECK: Supple. JVP normal. No thyromegaly. Trachea midline. LUNGS: Bilateral wheezing. CARDIOVASCULAR: S1, S2 regular. ABDOMEN: Soft, nontender, no guarding, no rigidity. Bowel sounds present. EXTREMITIES: The patient has a right below-knee amputation with prosthesis. Left lower extremity, no swelling, calf tenderness, or cyanosis. Labs Laboratory Tests Test 06/27/17 07:55 06/27/17 08:32 06/27/17 15:40 06/27/17 21:40 White Blood Count 9.9 x10^3/uL (4.0-11.0) Red Blood Count 4.91 x10^6/uL (4.30-5.70) Hemoglobin 14.9 g/dL (13.0-17.5) Hematocrit 43.5 % (39.0-53.0) Mean Corpuscular Volume 89 fL (79-100) Mean Corpuscular Hemoglobin 30 pg (25-35) Mean Corpuscular Hemoglobin Concent 34 g/dL (31-37) Red Cell Distribution Width 12.9 % (11.5-14.5) Platelet Count 140 x10^3/uL (140-400) Neutrophils (%) (Auto) 63 % (31-73) Lymphocytes (%) (Auto) 12 % (24-48) Monocytes (%) (Auto) 8 % (0-9) Eosinophils (%) (Auto) 16 % (0-3) Basophils (%) (Auto) 1 % (0-3) Neutrophils # (Auto) 6.2 x10^3uL (1.8-7.7) Lymphocytes # (Auto) 1.2 x10^3/uL (1.0-4.8) Monocytes # (Auto) 0.8 x10^3/uL (0.0-1.1) Eosinophils # (Auto) 1.6 x10^3/uL (0.0-0.7) Basophils # (Auto) 0.1 x10^3/uL (0.0-0.2) Segmented Neutrophils % 57 % (35-66) Band Neutrophils % 5 % (0-9) Lymphocytes % 17 % (24-48) Monocytes % 4 % (0-10) Eosinophils % 16 % (0-5) Basophils % 1 % (0-3) Platelet Estimate Adequate (ADEQUATE) Prothrombin Time 13.1 SEC (11.7-14.0) Prothromb Time International Ratio 1.1 (0.8-1.1) Sodium Level 139 mmol/L (136-145) Potassium Level 4.2 mmol/L (3.5-5.1) Chloride Level 103 mmol/L (98-107) Carbon Dioxide Level 24 mmol/L (21-32) Anion Gap 12 (6-14) Blood Urea Nitrogen 46 mg/dL (8-26) Creatinine 1.4 mg/dL (0.7-1.3) Estimated GFR (Cockcroft-Gault) 50.7 Glucose Level 103 mg/dL (70-99) Lactic Acid Level 1.3 mmol/L (0.4-2.0) Calcium Level 9.1 mg/dL (8.5-10.1) Magnesium Level 2.3 mg/dL (1.8-2.4) Total Bilirubin 1.2 mg/dL (0.2-1.0) Direct Bilirubin 0.3 mg/dL (0.0-0.2) Aspartate Amino Transf (AST/SGOT) 26 U/L (15-37) Alanine Aminotransferase (ALT/SGPT) 26 U/L (16-63) Alkaline Phosphatase 62 U/L (46-116) Creatine Kinase 479 U/L (39-308) Creatine Kinase MB (Mass) 6.0 ng/mL (0.0-3.6) Creatine Kinase MB Relative Index 1.3 % (0-4) Troponin I Quantitative < 0.017 ng/mL (0.000-0.055) < 0.017 ng/mL (0.000-0.055) < 0.017 ng/mL (0.000-0.055) XR-Aio-W-Type Natriuretic Peptide 485 pg/mL (0-124) Total Protein 7.9 g/dL (6.4-8.2) Albumin 4.1 g/dL (3.4-5.0) Lipase 144 U/L (73-393) Thyroid Stimulating Hormone (TSH) 2.438 uIU/mL (0.358-3.74) Urine Collection Type Void Urine Color Yellow Urine Clarity Clear Urine pH 5.5 Urine Specific [place] 1.020 Urine Protein Negative mg/dL (NEG-TRACE) Urine Glucose (UA) Negative mg/dL (NEG) Urine Ketones (Stick) Trace mg/dL (NEG) Urine Blood Negative (NEG) Urine Nitrite Negative (NEG) Urine Bilirubin Negative (NEG) Urine Urobilinogen Dipstick 0.2 mg/dL (0.2 mg/dL) Urine Leukocyte Esterase Negative (NEG) Urine RBC Occ /HPF (0-2) Urine WBC Occ /HPF (0-4) Urine Squamous Epithelial Cells Few /LPF Urine Bacteria Few /HPF (0-FEW) Urine Mucus Mod /LPF Urine Opiates Screen Neg (NEG) Urine Methadone Screen Neg (NEG) Urine Barbiturates Neg (NEG) Urine Phencyclidine Screen Neg (NEG) Urine Amphetamine/Methamphetamine Neg (NEG) Urine Benzodiazepines Screen Neg (NEG) Urine Cocaine Screen Neg (NEG) Urine Cannabinoids Screen Neg (NEG) Urine Ethyl Alcohol Neg (NEG) Test 06/28/17 05:15 White Blood Count 13.7 x10^3/uL (4.0-11.0) Red Blood Count 4.35 x10^6/uL (4.30-5.70) Hemoglobin 13.3 g/dL (13.0-17.5) Hematocrit 38.6 % (39.0-53.0) Mean Corpuscular Volume 89 fL (79-100) Mean Corpuscular Hemoglobin 31 pg (25-35) Mean Corpuscular Hemoglobin Concent 34 g/dL (31-37) Red Cell Distribution Width 12.8 % (11.5-14.5) Platelet Count 137 x10^3/uL (140-400) Neutrophils (%) (Auto) 86 % (31-73) Lymphocytes (%) (Auto) 6 % (24-48) Monocytes (%) (Auto) 8 % (0-9) Eosinophils (%) (Auto) 0 % (0-3) Basophils (%) (Auto) 0 % (0-3) Neutrophils # (Auto) 11.8 x10^3uL (1.8-7.7) Lymphocytes # (Auto) 0.8 x10^3/uL (1.0-4.8) Monocytes # (Auto) 1.1 x10^3/uL (0.0-1.1) Eosinophils # (Auto) 0.0 x10^3/uL (0.0-0.7) Basophils # (Auto) 0.0 x10^3/uL (0.0-0.2) Sodium Level 137 mmol/L (136-145) Potassium Level 4.5 mmol/L (3.5-5.1) Chloride Level 104 mmol/L (98-107) Carbon Dioxide Level 25 mmol/L (21-32) Anion Gap 8 (6-14) Blood Urea Nitrogen 49 mg/dL (8-26) Creatinine 1.4 mg/dL (0.7-1.3) Estimated GFR (Cockcroft-Gault) 50.7 BUN/Creatinine Ratio 35 (6-20) Glucose Level 125 mg/dL (70-99) Calcium Level 8.9 mg/dL (8.5-10.1) Total Bilirubin 0.5 mg/dL (0.2-1.0) Aspartate Amino Transf (AST/SGOT) 22 U/L (15-37) Alanine Aminotransferase (ALT/SGPT) 24 U/L (16-63) Alkaline Phosphatase 53 U/L (46-116) Total Protein 7.1 g/dL (6.4-8.2) Albumin 3.6 g/dL (3.4-5.0) Albumin/Globulin Ratio 1.0 (1.0-1.7) Laboratory Tests Test 06/27/17 15:40 06/27/17 21:40 06/28/17 05:15 Troponin I Quantitative < 0.017 ng/mL (0.000-0.055) < 0.017 ng/mL (0.000-0.055) White Blood Count 13.7 x10^3/uL (4.0-11.0) Red Blood Count 4.35 x10^6/uL (4.30-5.70) Hemoglobin 13.3 g/dL (13.0-17.5) Hematocrit 38.6 % (39.0-53.0) Mean Corpuscular Volume 89 fL (79-100) Mean Corpuscular Hemoglobin 31 pg (25-35) Mean Corpuscular Hemoglobin Concent 34 g/dL (31-37) Red Cell Distribution Width 12.8 % (11.5-14.5) Platelet Count 137 x10^3/uL (140-400) Neutrophils (%) (Auto) 86 % (31-73) Lymphocytes (%) (Auto) 6 % (24-48) Monocytes (%) (Auto) 8 % (0-9) Eosinophils (%) (Auto) 0 % (0-3) Basophils (%) (Auto) 0 % (0-3) Neutrophils # (Auto) 11.8 x10^3uL (1.8-7.7) Lymphocytes # (Auto) 0.8 x10^3/uL (1.0-4.8) Monocytes # (Auto) 1.1 x10^3/uL (0.0-1.1) Eosinophils # (Auto) 0.0 x10^3/uL (0.0-0.7) Basophils # (Auto) 0.0 x10^3/uL (0.0-0.2) Sodium Level 137 mmol/L (136-145) Potassium Level 4.5 mmol/L (3.5-5.1) Chloride Level 104 mmol/L (98-107) Carbon Dioxide Level 25 mmol/L (21-32) Anion Gap 8 (6-14) Blood Urea Nitrogen 49 mg/dL (8-26) Creatinine 1.4 mg/dL (0.7-1.3) Estimated GFR (Cockcroft-Gault) 50.7 BUN/Creatinine Ratio 35 (6-20) Glucose Level 125 mg/dL (70-99) Calcium Level 8.9 mg/dL (8.5-10.1) Total Bilirubin 0.5 mg/dL (0.2-1.0) Aspartate Amino Transf (AST/SGOT) 22 U/L (15-37) Alanine Aminotransferase (ALT/SGPT) 24 U/L (16-63) Alkaline Phosphatase 53 U/L (46-116) Total Protein 7.1 g/dL (6.4-8.2) Albumin 3.6 g/dL (3.4-5.0) Albumin/Globulin Ratio 1.0 (1.0-1.7) Meds Current Medications Albuterol/ Ipratropium (Duoneb) 3 ml RTQID NEB Last administered on 06/28/17 08:19; Start 06/27/17 at 12:00 Clopidogrel Bisulfate (Plavix) 75 mg DAILY PO Last administered on 06/28/17 08:47; Start 06/27/17 at 11:00 Guaifenesin (Mucinex) 600 mg BID PO Last administered on 06/28/17 08:47; Start 06/27/17 at 11:00 Methylprednisolone Sodium Succinate (SOLU-Medrol 125MG VIAL) 60 mg BID92 IV Last administered on 06/28/17 08:48; Start 06/27/17 at 14:00 Metoprolol Succinate (Toprol Xl) 25 mg DAILY PO Last administered on 08:48; Start 06/27/17 at 11:00 Montelukast Sodium (Singulair) 10 mg HS PO Last administered on 06/27/17 20: 14; Start 06/27/17 at 21:00 Simvastatin (Zocor) 20 mg HS PO Last administered on 06/27/17 20:14; Start 06/27/17 at 21:00 Assessment Assessment 1. Acute exacerbation of chronic obstructive pulmonary disease. Clinically, the patient does not have any viral infection. He has been started on Zithromax in the Emergency Room. 2. Acute renal failure, creatinine is 1.4, BUN is 46. We do not have his baseline creatinine available at this time. He may have chronic kidney disease; last year, his creatinine was 1.4 on admission, but at that time, he was also very ill. 3. Hypertension. 4. Recent hypotension at home. 5. Coronary artery disease with history of LAD stent placement. 6. Right below-knee amputation. 7. Hyperlipidemia. 8. Systolic congestive heart failure with ejection fraction of 30-35% previously. 9. History of critical aortic stenosis with a transaortic valve replacement at [facility] in 06/2016. PLAN: Condition and treatment discussed with the patient and the family extensively. I will start him on IV steroids, continue Zithromax. Consult Dr. Broderick for pulmonary evaluation and management. Consult Cardiology Group for cardiology evaluation and management. For details, please refer to the orders. Recheck labs in a.m. I will hold lisinopril and metoprolol at this time. Because of his persistent cough previously, it would be better to probably switch him to losartan when it is restarted. I will also hold Lasix and potassium at this time and monitor renal function. I will not give any IV fluids as at this time, but just hold diuretics and see how he does. For details, please refer to the orders. Symptoms are mainly respiratory. D/w family,patient.still coughing a lot. Echo ordered. Plan Plan For more details regarding further plans, please refer to the orders. AYANNA DUMONT MD Jun 28, 2017 10:52
[2017-06-28 11:00] VITALS: BP 114/76
[2017-06-28] MEDS: BUDESONIDE 0.5 MG/2 ML NEBU. NEB SCH ×2 (11:41→20:00)
[2017-06-28] MEDS ORDERED: ALBUTEROL SULFATE 2.5 MG/3 ML NEBU. NEB SCH (12:00)
[2017-06-28 15:00] VITALS: BP 122/85
[2017-06-28] MEDS: BENZONATATE 100 MG CAPSULE. PO PRN (16:07)
--- NOTE | 2017-06-28 16:07 | PDOC ---
PULMONARY PROGRESS NOTES Vitals Vital Signs Date Time Temp Pulse Resp B/P (MAP) Pulse Ox O2 Delivery O2 Flow Rate FiO2 06/28/17 11:42 95 Nasal Cannula 1.0 06/28/17 11:00 98.2 78 18 114/76 (89) 98.2 General: Alert Lungs: Clear Cardiovascular: S1 Abdomen: Soft Extremities: No Edema Labs Laboratory Tests Test 06/27/17 07:55 06/27/17 08:32 06/27/17 15:40 06/27/17 21:40 White Blood Count 9.9 x10^3/uL (4.0-11.0) Red Blood Count 4.91 x10^6/uL (4.30-5.70) Hemoglobin 14.9 g/dL (13.0-17.5) Hematocrit 43.5 % (39.0-53.0) Mean Corpuscular Volume 89 fL (79-100) Mean Corpuscular Hemoglobin 30 pg (25-35) Mean Corpuscular Hemoglobin Concent 34 g/dL (31-37) Red Cell Distribution Width 12.9 % (11.5-14.5) Platelet Count 140 x10^3/uL (140-400) Neutrophils (%) (Auto) 63 % (31-73) Lymphocytes (%) (Auto) 12 % (24-48) Monocytes (%) (Auto) 8 % (0-9) Eosinophils (%) (Auto) 16 % (0-3) Basophils (%) (Auto) 1 % (0-3) Neutrophils # (Auto) 6.2 x10^3uL (1.8-7.7) Lymphocytes # (Auto) 1.2 x10^3/uL (1.0-4.8) Monocytes # (Auto) 0.8 x10^3/uL (0.0-1.1) Eosinophils # (Auto) 1.6 x10^3/uL (0.0-0.7) Basophils # (Auto) 0.1 x10^3/uL (0.0-0.2) Segmented Neutrophils % 57 % (35-66) Band Neutrophils % 5 % (0-9) Lymphocytes % 17 % (24-48) Monocytes % 4 % (0-10) Eosinophils % 16 % (0-5) Basophils % 1 % (0-3) Platelet Estimate Adequate (ADEQUATE) Prothrombin Time 13.1 SEC (11.7-14.0) Prothromb Time International Ratio 1.1 (0.8-1.1) Sodium Level 139 mmol/L (136-145) Potassium Level 4.2 mmol/L (3.5-5.1) Chloride Level 103 mmol/L (98-107) Carbon Dioxide Level 24 mmol/L (21-32) Anion Gap 12 (6-14) Blood Urea Nitrogen 46 mg/dL (8-26) Creatinine 1.4 mg/dL (0.7-1.3) Estimated GFR (Cockcroft-Gault) 50.7 Glucose Level 103 mg/dL (70-99) Lactic Acid Level 1.3 mmol/L (0.4-2.0) Calcium Level 9.1 mg/dL (8.5-10.1) Magnesium Level 2.3 mg/dL (1.8-2.4) Total Bilirubin 1.2 mg/dL (0.2-1.0) Direct Bilirubin 0.3 mg/dL (0.0-0.2) Aspartate Amino Transf (AST/SGOT) 26 U/L (15-37) Alanine Aminotransferase (ALT/SGPT) 26 U/L (16-63) Alkaline Phosphatase 62 U/L (46-116) Creatine Kinase 479 U/L (39-308) Creatine Kinase MB (Mass) 6.0 ng/mL (0.0-3.6) Creatine Kinase MB Relative Index 1.3 % (0-4) Troponin I Quantitative < 0.017 ng/mL (0.000-0.055) < 0.017 ng/mL (0.000-0.055) < 0.017 ng/mL (0.000-0.055) IN-Hfj-F-Type Natriuretic Peptide 485 pg/mL (0-124) Total Protein 7.9 g/dL (6.4-8.2) Albumin 4.1 g/dL (3.4-5.0) Lipase 144 U/L (73-393) Thyroid Stimulating Hormone (TSH) 2.438 uIU/mL (0.358-3.74) Urine Collection Type Void Urine Color Yellow Urine Clarity Clear Urine pH 5.5 Urine Specific Perkins 1.020 Urine Protein Negative mg/dL (NEG-TRACE) Urine Glucose (UA) Negative mg/dL (NEG) Urine Ketones (Stick) Trace mg/dL (NEG) Urine Blood Negative (NEG) Urine Nitrite Negative (NEG) Urine Bilirubin Negative (NEG) Urine Urobilinogen Dipstick 0.2 mg/dL (0.2 mg/dL) Urine Leukocyte Esterase Negative (NEG) Urine RBC Occ /HPF (0-2) Urine WBC Occ /HPF (0-4) Urine Squamous Epithelial Cells Few /LPF Urine Bacteria Few /HPF (0-FEW) Urine Mucus Mod /LPF Urine Opiates Screen Neg (NEG) Urine Methadone Screen Neg (NEG) Urine Barbiturates Neg (NEG) Urine Phencyclidine Screen Neg (NEG) Urine Amphetamine/Methamphetamine Neg (NEG) Urine Benzodiazepines Screen Neg (NEG) Urine Cocaine Screen Neg (NEG) Urine Cannabinoids Screen Neg (NEG) Urine Ethyl Alcohol Neg (NEG) Test 06/28/17 05:15 White Blood Count 13.7 x10^3/uL (4.0-11.0) Red Blood Count 4.35 x10^6/uL (4.30-5.70) Hemoglobin 13.3 g/dL (13.0-17.5) Hematocrit 38.6 % (39.0-53.0) Mean Corpuscular Volume 89 fL (79-100) Mean Corpuscular Hemoglobin 31 pg (25-35) Mean Corpuscular Hemoglobin Concent 34 g/dL (31-37) Red Cell Distribution Width 12.8 % (11.5-14.5) Platelet Count 137 x10^3/uL (140-400) Neutrophils (%) (Auto) 86 % (31-73) Lymphocytes (%) (Auto) 6 % (24-48) Monocytes (%) (Auto) 8 % (0-9) Eosinophils (%) (Auto) 0 % (0-3) Basophils (%) (Auto) 0 % (0-3) Neutrophils # (Auto) 11.8 x10^3uL (1.8-7.7) Lymphocytes # (Auto) 0.8 x10^3/uL (1.0-4.8) Monocytes # (Auto) 1.1 x10^3/uL (0.0-1.1) Eosinophils # (Auto) 0.0 x10^3/uL (0.0-0.7) Basophils # (Auto) 0.0 x10^3/uL (0.0-0.2) Sodium Level 137 mmol/L (136-145) Potassium Level 4.5 mmol/L (3.5-5.1) Chloride Level 104 mmol/L (98-107) Carbon Dioxide Level 25 mmol/L (21-32) Anion Gap 8 (6-14) Blood Urea Nitrogen 49 mg/dL (8-26) Creatinine 1.4 mg/dL (0.7-1.3) Estimated GFR (Cockcroft-Gault) 50.7 BUN/Creatinine Ratio 35 (6-20) Glucose Level 125 mg/dL (70-99) Calcium Level 8.9 mg/dL (8.5-10.1) Total Bilirubin 0.5 mg/dL (0.2-1.0) Aspartate Amino Transf (AST/SGOT) 22 U/L (15-37) Alanine Aminotransferase (ALT/SGPT) 24 U/L (16-63) Alkaline Phosphatase 53 U/L (46-116) Total Protein 7.1 g/dL (6.4-8.2) Albumin 3.6 g/dL (3.4-5.0) Albumin/Globulin Ratio 1.0 (1.0-1.7) Laboratory Tests Test 06/27/17 21:40 06/28/17 05:15 Troponin I Quantitative < 0.017 ng/mL (0.000-0.055) White Blood Count 13.7 x10^3/uL (4.0-11.0) Red Blood Count 4.35 x10^6/uL (4.30-5.70) Hemoglobin 13.3 g/dL (13.0-17.5) Hematocrit 38.6 % (39.0-53.0) Mean Corpuscular Volume 89 fL (79-100) Mean Corpuscular Hemoglobin 31 pg (25-35) Mean Corpuscular Hemoglobin Concent 34 g/dL (31-37) Red Cell Distribution Width 12.8 % (11.5-14.5) Platelet Count 137 x10^3/uL (140-400) Neutrophils (%) (Auto) 86 % (31-73) Lymphocytes (%) (Auto) 6 % (24-48) Monocytes (%) (Auto) 8 % (0-9) Eosinophils (%) (Auto) 0 % (0-3) Basophils (%) (Auto) 0 % (0-3) Neutrophils # (Auto) 11.8 x10^3uL (1.8-7.7) Lymphocytes # (Auto) 0.8 x10^3/uL (1.0-4.8) Monocytes # (Auto) 1.1 x10^3/uL (0.0-1.1) Eosinophils # (Auto) 0.0 x10^3/uL (0.0-0.7) Basophils # (Auto) 0.0 x10^3/uL (0.0-0.2) Sodium Level 137 mmol/L (136-145) Potassium Level 4.5 mmol/L (3.5-5.1) Chloride Level 104 mmol/L (98-107) Carbon Dioxide Level 25 mmol/L (21-32) Anion Gap 8 (6-14) Blood Urea Nitrogen 49 mg/dL (8-26) Creatinine 1.4 mg/dL (0.7-1.3) Estimated GFR (Cockcroft-Gault) 50.7 BUN/Creatinine Ratio 35 (6-20) Glucose Level 125 mg/dL (70-99) Calcium Level 8.9 mg/dL (8.5-10.1) Total Bilirubin 0.5 mg/dL (0.2-1.0) Aspartate Amino Transf (AST/SGOT) 22 U/L (15-37) Alanine Aminotransferase (ALT/SGPT) 24 U/L (16-63) Alkaline Phosphatase 53 U/L (46-116) Total Protein 7.1 g/dL (6.4-8.2) Albumin 3.6 g/dL (3.4-5.0) Albumin/Globulin Ratio 1.0 (1.0-1.7) Medications Active Scripts Medications Dose Route/Sig Max Daily Dose Days Date Category Spironolactone 25 Mg Tablet 25 Mg PO DAILY 06/27/17 Reported [Doxycycline Hyclate] 100 MG Tablet 100 Mg PO BID 05/19/15 Rx Lasix (Furosemide) 40 Mg Tablet 40 Mg PO DAILY 05/19/15 Rx Prinivil (Lisinopril) 20 Mg Tablet 20 Mg PO DAILY 05/19/15 Rx Klor-Con M20 (Potassium Chloride) 20 Meq Tablet.er 20 Meq PO DAILYWBKFT 05/19/15 Rx Symbicort 160-4.5 Mcg Inhaler (Budesonide/Formoterol Fumarate) 10.2 Gm Hfa.aer.ad 160 Mcg INH BID 05/16/15 Reported Albuterol Sulfate Neb Soln (Albuterol Sulfate) 2.5 Mg/3 Ml Vial.neb 2.5 Mg INH PRN Q6HRS PRN 05/16/15 Reported Metoprolol Succinate ( Xl ) (Metoprolol Succinate) 25 Mg Tab.er.24h 25 Mg PO DAILY 05/16/15 Reported Montelukast Sodium Tablet (Montelukast Sodium) 10 Mg Tablet 10 Mg PO HS 05/16/15 Reported Clopidogrel (Clopidogrel Bisulfate) 75 Mg Tablet 75 Mg PO DAILY 05/16/15 Reported Proair Hfa Inhaler (Albuterol Sulfate) 8.5 Gm Hfa.aer.ad 1 Inh INH PRN Q4-6HRS PRN 05/16/15 Reported Simvastatin 20 Mg Tablet 20 Mg PO HS 05/16/15 Reported Impression . 1. Acute exacerbation of chronic obstructive pulmonary disease. 2. Cough secondary to above. 3. Hypertension. 4. Coronary artery disease with previous left anterior descending stent. 5. Right below knee amputation. 6. Aortic stenosis, status post transaortic valve replacement in in 06/2016. Plan . 1. Recommend continue steroids and antibiotics. 2. Nebulized treatments. 3. If the patient continues to improve, will switch over to oral prednisone. 4. Follow Cardiology input. DREW OWEN MD Jun 28, 2017 16:07
[2017-06-28] MEDS ORDERED: AZITHROMYCIN 500 MG in IV NORMAL SALINE 250ML 250 ML IV SCH (16:30)
[2017-06-28 19:00] VITALS: BP 125/72
[2017-06-28] MEDS: SIMVASTATIN 20 MG TABLET PO SCH (20:34)
[2017-06-28] MEDS: MONTELUKAST SODIUM 10 MG TABLET. PO SCH (20:34)
[2017-06-28] MEDS: LACTOBACILLUS RHAMNOSUS GG 1 CAPSULE. PO SCH (20:34)
[2017-06-28 23:00] VITALS: BP 126/74
[2017-06-29 02:53] VITALS: BP 144/83
[2017-06-29] MEDS: ALBUTEROL SULFATE 2.5 MG/3 ML NEBU. NEB PRN ×2 (02:59→21:35)
[2017-06-29] MEDS: BENZONATATE 100 MG CAPSULE. PO PRN ×3 (03:15→23:29)
[2017-06-29 05:39] LABS: ALBUMIN 3.6 g/dL (3.4-5.0); CALCIUM 8.8 mg/dL (8.5-10.1); CREATININE 1.3 mg/dL (0.7-1.3); GFR 55.2; TOTAL BILIRUBIN 0.3 mg/dL (0.2-1.0); TOTAL PROTEIN 7.1 g/dL (6.4-8.2)
[2017-06-29 07:00] VITALS: BP 131/84
[2017-06-29] MEDS: BUDESONIDE 0.5 MG/2 ML NEBU. NEB SCH ×2 (07:27→18:19)
[2017-06-29] MEDS: IPRATRPIUM/ALBUTEROL 0.5/2.5MG 3 ML NEBU. NEB SCH ×4 (07:27→18:19)
[2017-06-29] MEDS: AZITHROMYCIN 250 MG TABLET. PO SCH (08:30)
[2017-06-29] MEDS: LACTOBACILLUS RHAMNOSUS GG 1 CAPSULE. PO SCH ×2 (08:31→21:21)
[2017-06-29] MEDS: METOPROLOL SUCC 24HR ER 25 MG TAB.ER.24H. PO SCH (08:31)
[2017-06-29] MEDS: CLOPIDOGREL BISULFATE 75 MG TABLET PO SCH (08:31)
[2017-06-29] MEDS: methylPREDNISolone SOD SUCC PF 125 MG/2 ML VIAL. IV SCH ×2 (08:31→13:57)
[2017-06-29 11:37] VITALS: BP 131/82
--- NOTE | 2017-06-29 12:03 | PDOC ---
PROGRESS NOTES Subjective Subjective cough and sob Objective Objective Vital Signs Date Time Temp Pulse Resp B/P (MAP) Pulse Ox O2 Delivery O2 Flow Rate FiO2 06/29/17 11:37 98.7 72 18 131/82 (98) 93 Room Air 98.7 06/29/17 02:54 3.0 Intake and Output 06/29/17 07:00 Intake Total 2010 ml Output Total 1600 ml Balance 410 ml Intake Oral 2010 ml Output Urine Total 1600 ml Physical Exam Abdomen: Normal bowel sounds, Soft Heart: Regular rate, Normal S1 Extremities: No clubbing General: Alert HEENT: Atraumatic Lungs: Other (brooks wheezing) MUSCULOSKELETAL: No deformity Neck: Supple Neuro: Normal speech Psych/Mental Status: Mood NL Skin: No breakdown Diagnosis Problem List Problems Medical Problems: (1) COPD exacerbation Status: Acute Assessment Assessment 1. Acute exacerbation of chronic obstructive pulmonary disease. 2. Acute renal failure, creatinine is 1.4, BUN is 46. 3. Hypertension. 4. Recent hypotension at home. 5. Coronary artery disease with history of LAD stent placement. 6. Right below-knee amputation. 7. Hyperlipidemia. 8. Systolic congestive heart failure with ejection fraction of 30-35% 9. History of critical aortic stenosis with a transaortic valve replacement at [facility] in 06/2016. PLAN: spoke with cardiology sob due to lung problems copd cardiac status stable. steroids +duoneb for now. Condition and treatment discussed with the patient and the family extensively. I will start him on IV steroids, continue Zithromax. Consult Dr. Broderick for pulmonary evaluation and management. Consult [facility] for cardiology evaluation and management. For details, please refer to the orders. Recheck labs in a.m. I will hold lisinopril and metoprolol at this time. Because of his persistent cough previously, it would be better to probably switch him to losartan when it is restarted. I will also hold Lasix and potassium at this time and monitor renal function. I will not give any IV fluids as at this time, but just hold diuretics and see how he does. For details, please refer to the orders. Symptoms are mainly respiratory. D/w family,patient.still coughing a lot. Echo ordered. Problems: Plan Plan of Care Problems Medical Problems: (1) COPD exacerbation Status: Acute Comment Review of Relevant I have reviewed the following items taylor (where applicable) has been applied. Labs Laboratory Tests Test 06/29/17 04:10 Sodium Level 141 mmol/L (136-145) Potassium Level 4.0 mmol/L (3.5-5.1) Chloride Level 106 mmol/L (98-107) Carbon Dioxide Level 25 mmol/L (21-32) Anion Gap 10 (6-14) Blood Urea Nitrogen 37 mg/dL (8-26) Creatinine 1.3 mg/dL (0.7-1.3) Estimated GFR (Cockcroft-Gault) 55.2 BUN/Creatinine Ratio 28 (6-20) Glucose Level 83 mg/dL (70-99) Calcium Level 8.8 mg/dL (8.5-10.1) Total Bilirubin 0.3 mg/dL (0.2-1.0) Aspartate Amino Transf (AST/SGOT) 17 U/L (15-37) Alanine Aminotransferase (ALT/SGPT) 23 U/L (16-63) Alkaline Phosphatase 52 U/L (46-116) Total Protein 7.1 g/dL (6.4-8.2) Albumin 3.6 g/dL (3.4-5.0) Albumin/Globulin Ratio 1.0 (1.0-1.7) Microbiology 06/27/17 Blood Culture - Preliminary, Resulted NO GROWTH AFTER 2 DAYS Medications Current Medications Azithromycin (Zithromax) 500 mg DAILY PO Last administered on 06/29/17 08:30 ; Start 06/29/17 at 09:00 Azithromycin 500 mg/Sodium Chloride 250 ml @ 250 mls/hr Q24H IV Last administered on 06/28/17 16:15; Start 06/28/17 at 16:30; Stop 06/29/17 at 05 :00; Status DC Benzonatate (Tessalon Perle) 100 mg PRN TID PRN PO COUGH Last administered on 06/29/17 03:15; Start 06/28/17 at 16:00 Lactobacillus Rhamnosus (Culturelle) 1 cap BID PO Last administered on 08:31; Start 06/28/17 at 21:00 Vitals/I & O Vital Sign - Last 24 Hours 06/28/17 06/28/17 06/28/17 06/28/17 15:00 16:09 19:00 19:30 Temp 97.6 97.8 97.6 97.8 Pulse 77 91 Resp 20 20 B/P (MAP) 122/85 (97) 125/72 (89) Pulse Ox 98 95 94 O2 Delivery Nasal Cannula Nasal Cannula Nasal Cannula Nasal Cannula O2 Flow Rate 2.0 1.0 2.0 1.0 06/28/17 06/28/17 06/29/17 06/29/17 20:35 23:00 02:53 02:54 Temp 97.4 98.4 97.4 98.4 Pulse 81 105 Resp 18 24 B/P (MAP) 126/74 (91) 144/83 (103) Pulse Ox 93 94 97 O2 Delivery Room Air Nasal Cannula Nasal Cannula Nasal Cannula O2 Flow Rate 2.0 4.0 3.0 06/29/17 06/29/17 06/29/17 06/29/17 07:00 07:31 08:00 08:31 Temp 98.8 98.8 Pulse 80 84 Resp 20 B/P (MAP) 131/84 (100) 131/80 Pulse Ox 92 96 O2 Delivery Room Air Room Air Room Air 06/29/17 06/29/17 11:10 11:37 Temp 98.7 98.7 Pulse 72 Resp 18 B/P (MAP) 131/82 (98) Pulse Ox 96 93 O2 Delivery Room Air Room Air Intake and Output 06/28/17 06/28/17 06/29/17 15:00 23:00 07:00 Intake Total 460 ml 950 ml 600 ml Output Total 1250 ml 350 ml Balance 460 ml -300 ml 250 ml ALLEGRA REYNOLDS MD Jun 29, 2017 12:03
[2017-06-29 15:16] VITALS: BP 130/84
--- NOTE | 2017-06-29 18:09 | PDOC ---
PULMONARY PROGRESS NOTES Subjective PT AT TIMES STILL SOA AND COUGHING Vitals Vital Signs Date Time Temp Pulse Resp B/P (MAP) Pulse Ox O2 Delivery O2 Flow Rate FiO2 06/29/17 15:46 96 Room Air 06/29/17 15:16 98.6 75 18 130/84 (99) 98.6 06/29/17 02:54 3.0 General: Alert Lungs: Clear Cardiovascular: S1 Abdomen: Soft Neuro Exam: Alert Extremities: No Edema Skin: Warm Labs Laboratory Tests Test 06/27/17 21:40 06/28/17 05:15 06/29/17 04:10 Troponin I Quantitative < 0.017 ng/mL (0.000-0.055) White Blood Count 13.7 x10^3/uL (4.0-11.0) Red Blood Count 4.35 x10^6/uL (4.30-5.70) Hemoglobin 13.3 g/dL (13.0-17.5) Hematocrit 38.6 % (39.0-53.0) Mean Corpuscular Volume 89 fL (79-100) Mean Corpuscular Hemoglobin 31 pg (25-35) Mean Corpuscular Hemoglobin Concent 34 g/dL (31-37) Red Cell Distribution Width 12.8 % (11.5-14.5) Platelet Count 137 x10^3/uL (140-400) Neutrophils (%) (Auto) 86 % (31-73) Lymphocytes (%) (Auto) 6 % (24-48) Monocytes (%) (Auto) 8 % (0-9) Eosinophils (%) (Auto) 0 % (0-3) Basophils (%) (Auto) 0 % (0-3) Neutrophils # (Auto) 11.8 x10^3uL (1.8-7.7) Lymphocytes # (Auto) 0.8 x10^3/uL (1.0-4.8) Monocytes # (Auto) 1.1 x10^3/uL (0.0-1.1) Eosinophils # (Auto) 0.0 x10^3/uL (0.0-0.7) Basophils # (Auto) 0.0 x10^3/uL (0.0-0.2) Sodium Level 137 mmol/L (136-145) 141 mmol/L (136-145) Potassium Level 4.5 mmol/L (3.5-5.1) 4.0 mmol/L (3.5-5.1) Chloride Level 104 mmol/L (98-107) 106 mmol/L (98-107) Carbon Dioxide Level 25 mmol/L (21-32) 25 mmol/L (21-32) Anion Gap 8 (6-14) 10 (6-14) Blood Urea Nitrogen 49 mg/dL (8-26) 37 mg/dL (8-26) Creatinine 1.4 mg/dL (0.7-1.3) 1.3 mg/dL (0.7-1.3) Estimated GFR (Cockcroft-Gault) 50.7 55.2 BUN/Creatinine Ratio 35 (6-20) 28 (6-20) Glucose Level 125 mg/dL (70-99) 83 mg/dL (70-99) Calcium Level 8.9 mg/dL (8.5-10.1) 8.8 mg/dL (8.5-10.1) Total Bilirubin 0.5 mg/dL (0.2-1.0) 0.3 mg/dL (0.2-1.0) Aspartate Amino Transf (AST/SGOT) 22 U/L (15-37) 17 U/L (15-37) Alanine Aminotransferase (ALT/SGPT) 24 U/L (16-63) 23 U/L (16-63) Alkaline Phosphatase 53 U/L (46-116) 52 U/L (46-116) Total Protein 7.1 g/dL (6.4-8.2) 7.1 g/dL (6.4-8.2) Albumin 3.6 g/dL (3.4-5.0) 3.6 g/dL (3.4-5.0) Albumin/Globulin Ratio 1.0 (1.0-1.7) 1.0 (1.0-1.7) Laboratory Tests Test 06/29/17 04:10 Sodium Level 141 mmol/L (136-145) Potassium Level 4.0 mmol/L (3.5-5.1) Chloride Level 106 mmol/L (98-107) Carbon Dioxide Level 25 mmol/L (21-32) Anion Gap 10 (6-14) Blood Urea Nitrogen 37 mg/dL (8-26) Creatinine 1.3 mg/dL (0.7-1.3) Estimated GFR (Cockcroft-Gault) 55.2 BUN/Creatinine Ratio 28 (6-20) Glucose Level 83 mg/dL (70-99) Calcium Level 8.8 mg/dL (8.5-10.1) Total Bilirubin 0.3 mg/dL (0.2-1.0) Aspartate Amino Transf (AST/SGOT) 17 U/L (15-37) Alanine Aminotransferase (ALT/SGPT) 23 U/L (16-63) Alkaline Phosphatase 52 U/L (46-116) Total Protein 7.1 g/dL (6.4-8.2) Albumin 3.6 g/dL (3.4-5.0) Albumin/Globulin Ratio 1.0 (1.0-1.7) Medications Active Scripts Medications Dose Route/Sig Max Daily Dose Days Date Category Spironolactone 25 Mg Tablet 25 Mg PO DAILY 06/27/17 Reported [Doxycycline Hyclate] 100 MG Tablet 100 Mg PO BID 05/19/15 Rx Lasix (Furosemide) 40 Mg Tablet 40 Mg PO DAILY 05/19/15 Rx Prinivil (Lisinopril) 20 Mg Tablet 20 Mg PO DAILY 05/19/15 Rx Klor-Con M20 (Potassium Chloride) 20 Meq Tablet.er 20 Meq PO DAILYWBKFT 05/19/15 Rx Symbicort 160-4.5 Mcg Inhaler (Budesonide/Formoterol Fumarate) 10.2 Gm Hfa.aer.ad 160 Mcg INH BID 05/16/15 Reported Albuterol Sulfate Neb Soln (Albuterol Sulfate) 2.5 Mg/3 Ml Vial.neb 2.5 Mg INH PRN Q6HRS PRN 05/16/15 Reported Metoprolol Succinate ( Xl ) (Metoprolol Succinate) 25 Mg Tab.er.24h 25 Mg PO DAILY 05/16/15 Reported Montelukast Sodium Tablet (Montelukast Sodium) 10 Mg Tablet 10 Mg PO HS 05/16/15 Reported Clopidogrel (Clopidogrel Bisulfate) 75 Mg Tablet 75 Mg PO DAILY 05/16/15 Reported Proair Hfa Inhaler (Albuterol Sulfate) 8.5 Gm Hfa.aer.ad 1 Inh INH PRN Q4-6HRS PRN 10/12/15 Reported Simvastatin 20 Mg Tablet 20 Mg PO HS 05/16/15 Reported Impression . 1. Acute exacerbation of chronic obstructive pulmonary disease. 2. Cough secondary to above. 3. Hypertension. 4. Coronary artery disease with previous left anterior descending stent. 5. Right below knee amputation. 6. Aortic stenosis, status post transaortic valve replacement in in 06/2016. Plan . RESP STATUS IS COMPENSATED 1. Recommend continue steroids and antibiotics. 2. Nebulized treatments. 3. If the patient continues to improve, will switch over to oral prednisone. 4. Follow Cardiology input. DREW OWEN MD Jun 29, 2017 18:09
[2017-06-29 19:20] VITALS: BP 137/73
[2017-06-29] MEDS: MONTELUKAST SODIUM 10 MG TABLET. PO SCH (21:21)
[2017-06-29] MEDS: SIMVASTATIN 20 MG TABLET PO SCH (21:21)
[2017-06-29] MEDS: ACETAMINOPHEN 325 MG TABLET. PO PRN (21:21)
[2017-06-29 22:40] VITALS: BP 122/72
[2017-06-30 03:27] VITALS: BP 117/68
[2017-06-30] MEDS: ALBUTEROL SULFATE 2.5 MG/3 ML NEBU. NEB PRN (05:13)
[2017-06-30 06:03] LABS: ALBUMIN 3.5 g/dL (3.4-5.0); ALBUMIN/GLOBULIN RATIO 1.2 (1.0-1.7); CALCIUM 8.3 mg/dL (8.5-10.1); CREATININE 1.3 mg/dL (0.7-1.3); GFR 55.2; POTASSIUM 4.3 mmol/L (3.5-5.1); TOTAL BILIRUBIN 0.4 mg/dL (0.2-1.0); TOTAL PROTEIN 6.4 g/dL (6.4-8.2)
[2017-06-30 07:00] VITALS: BP 139/74
[2017-06-30] MEDS: IPRATRPIUM/ALBUTEROL 0.5/2.5MG 3 ML NEBU. NEB SCH ×4 (07:33→19:26)
[2017-06-30] MEDS: BUDESONIDE 0.5 MG/2 ML NEBU. NEB SCH ×2 (07:33→19:27)
[2017-06-30] MEDS: methylPREDNISolone SOD SUCC PF 125 MG/2 ML VIAL. IV SCH ×2 (09:00→14:14)
[2017-06-30] MEDS: LACTOBACILLUS RHAMNOSUS GG 1 CAPSULE. PO SCH ×2 (09:02→20:25)
[2017-06-30] MEDS: AZITHROMYCIN 250 MG TABLET. PO SCH (09:02)
[2017-06-30] MEDS: CLOPIDOGREL BISULFATE 75 MG TABLET PO SCH (09:02)
[2017-06-30] MEDS: METOPROLOL SUCC 24HR ER 25 MG TAB.ER.24H. PO SCH (09:03)
--- NOTE | 2017-06-30 10:25 | PDOC ---
PULMONARY PROGRESS NOTES Subjective PT AT TIMES STILL SOA AND COUGHING Vitals Vital Signs Date Time Temp Pulse Resp B/P (MAP) Pulse Ox O2 Delivery O2 Flow Rate FiO2 06/30/17 09:03 83 139/74 06/30/17 08:00 Room Air 06/30/17 07:35 95 06/30/17 07:00 98.1 20 2.0 98.1 General: Alert Lungs: Clear Cardiovascular: S1 Abdomen: Soft Neuro Exam: Alert Extremities: No Edema Skin: Warm Labs Laboratory Tests Test 06/29/17 04:10 06/30/17 04:25 Sodium Level 141 mmol/L (136-145) 140 mmol/L (136-145) Potassium Level 4.0 mmol/L (3.5-5.1) 4.3 mmol/L (3.5-5.1) Chloride Level 106 mmol/L (98-107) 107 mmol/L (98-107) Carbon Dioxide Level 25 mmol/L (21-32) 25 mmol/L (21-32) Anion Gap 10 (6-14) 8 (6-14) Blood Urea Nitrogen 37 mg/dL (8-26) 36 mg/dL (8-26) Creatinine 1.3 mg/dL (0.7-1.3) 1.3 mg/dL (0.7-1.3) Estimated GFR (Cockcroft-Gault) 55.2 55.2 BUN/Creatinine Ratio 28 (6-20) 28 (6-20) Glucose Level 83 mg/dL (70-99) 117 mg/dL (70-99) Calcium Level 8.8 mg/dL (8.5-10.1) 8.3 mg/dL (8.5-10.1) Total Bilirubin 0.3 mg/dL (0.2-1.0) 0.4 mg/dL (0.2-1.0) Aspartate Amino Transf (AST/SGOT) 17 U/L (15-37) 17 U/L (15-37) Alanine Aminotransferase (ALT/SGPT) 23 U/L (16-63) 27 U/L (16-63) Alkaline Phosphatase 52 U/L (46-116) 40 U/L (46-116) Total Protein 7.1 g/dL (6.4-8.2) 6.4 g/dL (6.4-8.2) Albumin 3.6 g/dL (3.4-5.0) 3.5 g/dL (3.4-5.0) Albumin/Globulin Ratio 1.0 (1.0-1.7) 1.2 (1.0-1.7) Laboratory Tests Test 06/30/17 04:25 Sodium Level 140 mmol/L (136-145) Potassium Level 4.3 mmol/L (3.5-5.1) Chloride Level 107 mmol/L (98-107) Carbon Dioxide Level 25 mmol/L (21-32) Anion Gap 8 (6-14) Blood Urea Nitrogen 36 mg/dL (8-26) Creatinine 1.3 mg/dL (0.7-1.3) Estimated GFR (Cockcroft-Gault) 55.2 BUN/Creatinine Ratio 28 (6-20) Glucose Level 117 mg/dL (70-99) Calcium Level 8.3 mg/dL (8.5-10.1) Total Bilirubin 0.4 mg/dL (0.2-1.0) Aspartate Amino Transf (AST/SGOT) 17 U/L (15-37) Alanine Aminotransferase (ALT/SGPT) 27 U/L (16-63) Alkaline Phosphatase 40 U/L (46-116) Total Protein 6.4 g/dL (6.4-8.2) Albumin 3.5 g/dL (3.4-5.0) Albumin/Globulin Ratio 1.2 (1.0-1.7) Medications Active Scripts Medications Dose Route/Sig Max Daily Dose Days Date Category Spironolactone 25 Mg Tablet 25 Mg PO DAILY 06/27/17 Reported [Doxycycline Hyclate] 100 MG Tablet 100 Mg PO BID 05/19/15 Rx Lasix (Furosemide) 40 Mg Tablet 40 Mg PO DAILY 05/19/15 Rx Prinivil (Lisinopril) 20 Mg Tablet 20 Mg PO DAILY 05/19/15 Rx Klor-Con M20 (Potassium Chloride) 20 Meq Tablet.er 20 Meq PO DAILYWBKFT 05/19/15 Rx Symbicort 160-4.5 Mcg Inhaler (Budesonide/Formoterol Fumarate) 10.2 Gm Hfa.aer.ad 160 Mcg INH BID 05/16/15 Reported Albuterol Sulfate Neb Soln (Albuterol Sulfate) 2.5 Mg/3 Ml Vial.neb 2.5 Mg INH PRN Q6HRS PRN 05/16/15 Reported Metoprolol Succinate ( Xl ) (Metoprolol Succinate) 25 Mg Tab.er.24h 25 Mg PO DAILY 05/16/15 Reported Montelukast Sodium Tablet (Montelukast Sodium) 10 Mg Tablet 10 Mg PO HS 05/16/15 Reported Clopidogrel (Clopidogrel Bisulfate) 75 Mg Tablet 75 Mg PO DAILY 05/16/15 Reported Proair Hfa Inhaler (Albuterol Sulfate) 8.5 Gm Hfa.aer.ad 1 Inh INH PRN Q4-6HRS PRN 05/16/15 Reported Simvastatin 20 Mg Tablet 20 Mg PO HS 05/16/15 Reported Impression . 1. Acute exacerbation of chronic obstructive pulmonary disease. 2. Cough secondary to above. 3. Hypertension. 4. Coronary artery disease with previous left anterior descending stent. 5. Right below knee amputation. 6. Aortic stenosis, status post transaortic valve replacement in in 06/2016. Plan . RESP STATUS IS COMPENSATED HOME IN AM? ECHO PENDING 1. Recommend continue steroids and antibiotics. 2. Nebulized treatments. 3. If the patient continues to improve, will switch over to oral prednisone. 4. Follow Cardiology input. DREW OWEN MD Jun 30, 2017 10:25
[2017-06-30 11:00] VITALS: BP 144/79
--- NOTE | 2017-06-30 11:27 | PDOC ---
PROGRESS NOTES Subjective Subjective slow improvement, vomited once Objective Objective Vital Signs Date Time Temp Pulse Resp B/P (MAP) Pulse Ox O2 Delivery O2 Flow Rate FiO2 06/30/17 10:48 96 Room Air 06/30/17 09:03 83 139/74 06/30/17 07:00 98.1 20 2.0 98.1 Intake and Output 06/30/17 07:00 Intake Total 2960 ml Output Total 825 ml Balance 2135 ml Intake Oral 2960 ml Output Urine Total 825 ml # Voids 5 Physical Exam Abdomen: Normal bowel sounds, Soft Heart: Regular rate, Normal S1 Extremities: No clubbing General: Alert HEENT: Atraumatic Lungs: Other (brooks wheezing) MUSCULOSKELETAL: No deformity Neck: Supple Neuro: Normal speech Psych/Mental Status: Mood NL Skin: No breakdown Diagnosis Problem List Problems Medical Problems: (1) COPD exacerbation Status: Acute Assessment Assessment 1. Acute exacerbation of chronic obstructive pulmonary disease. 2. Acute renal failure, creatinine is 1.4, BUN is 46. 3. Hypertension. 4. Recent hypotension at home. 5. Coronary artery disease with history of LAD stent placement. 6. Right below-knee amputation. 7. Hyperlipidemia. 8. Systolic congestive heart failure with ejection fraction of 30-35% 9. History of critical aortic stenosis with a transaortic valve replacement at [facility] in 06/2016. PLAN: slow improvement iv steroids. Fox for n/v. spoke with cardiology sob due to lung problems copd cardiac status stable. DuoNeb for now+budesonide Condition and treatment discussed with the patient and the family extensively. I will start him on IV steroids, continue Zithromax. Consult Dr. Broderick for pulmonary evaluation and management. Consult Cardiology Group for cardiology evaluation and management. For details, please refer to the orders. Recheck labs in a.m. I will hold lisinopril and metoprolol at this time. Because of his persistent cough previously, it would be better to probably switch him to losartan when it is restarted. I will also hold Lasix and potassium at this time and monitor renal function. I will not give any IV fluids as at this time, but just hold diuretics and see how he does. For details, please refer to the orders. Symptoms are mainly respiratory. D/w family,patient.still coughing a lot. Echo ordered. Problems: Plan Plan of Care Problems Medical Problems: (1) COPD exacerbation Status: Acute Comment Review of Relevant I have reviewed the following items taylor (where applicable) has been applied. Labs Laboratory Tests Test 06/30/17 04:25 Sodium Level 140 mmol/L (136-145) Potassium Level 4.3 mmol/L (3.5-5.1) Chloride Level 107 mmol/L (98-107) Carbon Dioxide Level 25 mmol/L (21-32) Anion Gap 8 (6-14) Blood Urea Nitrogen 36 mg/dL (8-26) Creatinine 1.3 mg/dL (0.7-1.3) Estimated GFR (Cockcroft-Gault) 55.2 BUN/Creatinine Ratio 28 (6-20) Glucose Level 117 mg/dL (70-99) Calcium Level 8.3 mg/dL (8.5-10.1) Total Bilirubin 0.4 mg/dL (0.2-1.0) Aspartate Amino Transf (AST/SGOT) 17 U/L (15-37) Alanine Aminotransferase (ALT/SGPT) 27 U/L (16-63) Alkaline Phosphatase 40 U/L (46-116) Total Protein 6.4 g/dL (6.4-8.2) Albumin 3.5 g/dL (3.4-5.0) Albumin/Globulin Ratio 1.2 (1.0-1.7) Microbiology 06/27/17 Blood Culture - Preliminary, Resulted NO GROWTH AFTER 3 DAYS Vitals/I & O Vital Sign - Last 24 Hours 06/29/17 06/29/17 06/29/17 06/29/17 11:37 15:16 15:46 18:21 Temp 98.7 98.6 98.7 98.6 Pulse 72 75 Resp 18 18 B/P (MAP) 131/82 (98) 130/84 (99) Pulse Ox 93 91 96 96 O2 Delivery Room Air Room Air Room Air Room Air 06/29/17 06/29/17 06/29/17 06/29/17 18:24 19:20 20:00 21:35 Temp 97.6 97.6 Pulse 83 Resp 18 B/P (MAP) 137/73 (94) Pulse Ox 92 O2 Delivery Room Air Room Air Nasal Cannula Room Air O2 Flow Rate 3.0 06/29/17 06/30/17 06/30/17 06/30/17 22:40 03:27 05:14 07:00 Temp 97.8 98.0 98.1 97.8 98.0 98.1 Pulse 78 83 83 Resp 18 18 20 B/P (MAP) 122/72 (89) 117/68 (84) 139/74 (95) Pulse Ox 92 92 99 97 O2 Delivery Room Air Room Air Nasal Cannula Nasal Cannula O2 Flow Rate 3.0 2.0 06/30/17 06/30/17 06/30/17 06/30/17 07:35 08:00 09:03 10:48 Pulse 83 B/P (MAP) 139/74 Pulse Ox 95 96 O2 Delivery Room Air Room Air Room Air Intake and Output 06/29/17 06/29/17 06/30/17 15:00 23:00 07:00 Intake Total 800 ml 1800 ml 360 ml Output Total 425 ml 400 ml Balance 800 ml 1375 ml -40 ml ALLEGRA REYNOLDS MD Jun 30, 2017 11:27
[2017-06-30] MEDS ORDERED: ONDANSETRON PF 4 MG/2 ML VIAL. IV PRN (11:30)
[2017-06-30] MEDS: BENZONATATE 100 MG CAPSULE. PO PRN ×2 (14:14→20:25)
[2017-06-30 15:00] VITALS: BP 160/73
--- NOTE | 2017-06-30 16:12 | CARD ---
APPROVED REPORT EXAM: Two-dimensional and M-mode echocardiogram with Doppler and color Doppler. Other Information Quality : Good INDICATION LV Function:SystolicDiastolic 2D DIMENSIONS Left Atrium(2D)4.1 (1.6-4.0cm)IVSd1.5 (0.7-1.1cm) Aortic Root(2D)3.3 (2.0-3.7cm)LVDd5.0 (3.9-5.9cm) LVOT Diameter2.0 (1.8-2.4cm)PWd1.3 (0.7-1.1cm) LVDs3.8 (2.5-4.0cm)FS (%) 25.6 % SV60.3 mlLVEF(%)50.1 (>50%) Aortic Valve AoV Peak Blake.348.1cm/sAoV VTI69.5cm AO Peak GR.48.5mmHgLVOT Peak Blake.117.4cm/s AO Mean GR.25mmHgAVA (VMAX)1.02cm2 MICHAEL (VTI)1.16oe5RI P 1/2 [id number] Mitral Valve MV E Nzoqzklx06.1cm/sMV DECEL [id number] MV A Ysdmlonz055.6cm/sE/A Ratio0.5 Tricuspid Valve TR P. Gwqwocli932dj/sRAP [id number] TR Peak Gr.60beOlQPVJ00lgYd LEFT VENTRICLE The left ventricle is normal size. There is mild to moderate concentric left ventricular hypertrophy. Left ventricle systolic function is low normal. The Ejection Fraction is 50%. The mid to distal ante roseptum, apex and anterior wall are moderately hypokinetic. Transmitral Doppler flow pattern is Grad e I-abnormal relaxation pattern. RIGHT VENTRICLE The right ventricle is normal size. There is normal right ventricular wall thickness. The right ventr icular systolic function is normal. ATRIA The left atrium size is normal. The right atrium size is normal. The interatrial septum is intact wit h no evidence for an atrial septal defect or patent foramen ovale as noted on 2-D or Doppler imaging. AORTIC VALVE Doppler and Color Flow revealed mild aortic regurgitation through the valve leaflet. No paravalvular regurgitation. Calculated aortic valve area is 1.2 cm2 with maximum pressure gradient of 48 mmHg and mean pressure gradient of 25 mmHg. Higher than expected velocities, 1 year post TAVR but overall cons istent with mild aortic stenosis based on velocities. The transcatheter aortic valve appears well sea kaela but not well visualized. MITRAL VALVE The mitral valve is thickened but opens well. There is no evidence of mitral valve prolapse. There is no mitral valve stenosis. Doppler and Color-flow revealed mild mitral regurgitation. TRICUSPID VALVE The tricuspid valve is normal in structure. No significant regurgitation. The PA pressure was estimat ed at 30 mmHg. GREAT VESSELS The aortic root is normal in size. The ascending aorta is normal in size. The IVC is normal in size a nd collapses >50% with inspiration. PERICARDIAL EFFUSION There is no pleural effusion. There is no evidence of significant pericardial effusion. Critical Notification Critical Value: No <Conclusion> Left ventricle systolic function is low normal. The Ejection Fraction is 50%. The mid to distal anteroseptum, apex and anterior wall are moderately hypokinetic. The transcatheter aortic valve appears well seated but not well visualized. Calculated aortic valve area is 1.2 cm2 with maximum pressure gradient of 48 mmHg and mean pressure gradient of 25 mmHg. Higher than expected velocities, 1 year post TAVR but overall consistent with mi ld aortic stenosis based on velocities. Doppler and Color Flow revealed mild aortic regurgitation through the valve leaflet. No paravalvular regurgitation.
[2017-06-30 19:00] VITALS: BP 122/85
[2017-06-30] MEDS: SIMVASTATIN 20 MG TABLET PO SCH (20:25)
[2017-06-30] MEDS: MONTELUKAST SODIUM 10 MG TABLET. PO SCH (20:26)
[2017-06-30 23:02] VITALS: BP 125/82
[2017-07-01 03:00] VITALS: BP 123/81
[2017-07-01 04:52] LABS: ALBUMIN 3.3 g/dL (3.4-5.0); ALBUMIN/GLOBULIN RATIO 1.1 (1.0-1.7); CALCIUM 8.7 mg/dL (8.5-10.1); CREATININE 1.2 mg/dL (0.7-1.3); GFR 60.6; POTASSIUM 4.3 mmol/L (3.5-5.1); TOTAL BILIRUBIN 0.4 mg/dL (0.2-1.0); TOTAL PROTEIN 6.3 g/dL (6.4-8.2)
[2017-07-01 07:00] VITALS: BP 125/65
[2017-07-01] MEDS: IPRATRPIUM/ALBUTEROL 0.5/2.5MG 3 ML NEBU. NEB SCH ×5 (08:09→23:44)
[2017-07-01] MEDS: BUDESONIDE 0.5 MG/2 ML NEBU. NEB SCH ×2 (08:09→19:36)
[2017-07-01] MEDS: CLOPIDOGREL BISULFATE 75 MG TABLET PO SCH (09:27)
[2017-07-01] MEDS: LACTOBACILLUS RHAMNOSUS GG 1 CAPSULE. PO SCH ×2 (09:27→21:20)
[2017-07-01] MEDS: AZITHROMYCIN 250 MG TABLET. PO SCH (09:27)
[2017-07-01] MEDS: METOPROLOL SUCC 24HR ER 25 MG TAB.ER.24H. PO SCH (09:28)
[2017-07-01] MEDS: methylPREDNISolone SOD SUCC PF 125 MG/2 ML VIAL. IV SCH ×3 (09:29→21:22)
--- NOTE | 2017-07-01 09:52 | PDOC ---
PULMONARY PROGRESS NOTES Subjective PT STILL SOA AND COUGHING Vitals Vital Signs Date Time Temp Pulse Resp B/P (MAP) Pulse Ox O2 Delivery O2 Flow Rate FiO2 07/01/17 09:28 68 125/65 07/01/17 08:12 94 Room Air 07/01/17 07:00 97.7 20 97.7 06/30/17 11:00 2.0 General: Alert, No acute distress Lungs: Wheezing (diffuse) Cardiovascular: S1 Abdomen: Soft Neuro Exam: Alert Extremities: No Edema Skin: Warm Labs Laboratory Tests Test 06/30/17 04:25 07/01/17 03:15 Sodium Level 140 mmol/L (136-145) 141 mmol/L (136-145) Potassium Level 4.3 mmol/L (3.5-5.1) 4.3 mmol/L (3.5-5.1) Chloride Level 107 mmol/L (98-107) 107 mmol/L (98-107) Carbon Dioxide Level 25 mmol/L (21-32) 28 mmol/L (21-32) Anion Gap 8 (6-14) 6 (6-14) Blood Urea Nitrogen 36 mg/dL (8-26) 32 mg/dL (8-26) Creatinine 1.3 mg/dL (0.7-1.3) 1.2 mg/dL (0.7-1.3) Estimated GFR (Cockcroft-Gault) 55.2 60.6 BUN/Creatinine Ratio 28 (6-20) 27 (6-20) Glucose Level 117 mg/dL (70-99) 116 mg/dL (70-99) Calcium Level 8.3 mg/dL (8.5-10.1) 8.7 mg/dL (8.5-10.1) Total Bilirubin 0.4 mg/dL (0.2-1.0) 0.4 mg/dL (0.2-1.0) Aspartate Amino Transf (AST/SGOT) 17 U/L (15-37) 18 U/L (15-37) Alanine Aminotransferase (ALT/SGPT) 27 U/L (16-63) 29 U/L (16-63) Alkaline Phosphatase 40 U/L (46-116) 45 U/L (46-116) Total Protein 6.4 g/dL (6.4-8.2) 6.3 g/dL (6.4-8.2) Albumin 3.5 g/dL (3.4-5.0) 3.3 g/dL (3.4-5.0) Albumin/Globulin Ratio 1.2 (1.0-1.7) 1.1 (1.0-1.7) Laboratory Tests Test 07/01/17 03:15 Sodium Level 141 mmol/L (136-145) Potassium Level 4.3 mmol/L (3.5-5.1) Chloride Level 107 mmol/L (98-107) Carbon Dioxide Level 28 mmol/L (21-32) Anion Gap 6 (6-14) Blood Urea Nitrogen 32 mg/dL (8-26) Creatinine 1.2 mg/dL (0.7-1.3) Estimated GFR (Cockcroft-Gault) 60.6 BUN/Creatinine Ratio 27 (6-20) Glucose Level 116 mg/dL (70-99) Calcium Level 8.7 mg/dL (8.5-10.1) Total Bilirubin 0.4 mg/dL (0.2-1.0) Aspartate Amino Transf (AST/SGOT) 18 U/L (15-37) Alanine Aminotransferase (ALT/SGPT) 29 U/L (16-63) Alkaline Phosphatase 45 U/L (46-116) Total Protein 6.3 g/dL (6.4-8.2) Albumin 3.3 g/dL (3.4-5.0) Albumin/Globulin Ratio 1.1 (1.0-1.7) Medications Active Scripts Medications Dose Route/Sig Max Daily Dose Days Date Category Spironolactone 25 Mg Tablet 25 Mg PO DAILY 06/27/17 Reported [Doxycycline Hyclate] 100 MG Tablet 100 Mg PO BID 05/19/15 Rx Lasix (Furosemide) 40 Mg Tablet 40 Mg PO DAILY 05/19/15 Rx Prinivil (Lisinopril) 20 Mg Tablet 20 Mg PO DAILY 05/19/15 Rx Klor-Con M20 (Potassium Chloride) 20 Meq Tablet.er 20 Meq PO DAILYWBKFT 05/19/15 Rx Symbicort 160-4.5 Mcg Inhaler (Budesonide/Formoterol Fumarate) 10.2 Gm Hfa.aer.ad 160 Mcg INH BID 05/16/15 Reported Albuterol Sulfate Neb Soln (Albuterol Sulfate) 2.5 Mg/3 Ml Vial.neb 2.5 Mg INH PRN Q6HRS PRN 05/16/15 Reported Metoprolol Succinate ( Xl ) (Metoprolol Succinate) 25 Mg Tab.er.24h 25 Mg PO DAILY 05/16/15 Reported Montelukast Sodium Tablet (Montelukast Sodium) 10 Mg Tablet 10 Mg PO HS 05/16/15 Reported Clopidogrel (Clopidogrel Bisulfate) 75 Mg Tablet 75 Mg PO DAILY 05/16/15 Reported Proair Hfa Inhaler (Albuterol Sulfate) 8.5 Gm Hfa.aer.ad 1 Inh INH PRN Q4-6HRS PRN 05/16/15 Reported Simvastatin 20 Mg Tablet 20 Mg PO HS 05/16/15 Reported Impression . 1. Acute exacerbation of chronic obstructive pulmonary disease./ diffuse wheezing 2. Cough secondary to above. 3. Hypertension. 4. Coronary artery disease with previous left anterior descending stent. 5. Right below knee amputation. 6. Aortic stenosis, status post transaortic valve replacement in in 06/2016. Plan . 1. Increase steroids / continue antibiotics. 2. increase Nebulized treatments q 4 hr 3. cough suppressants 4. Follow Cardiology input. 5. d/w [place] Rico MD Jul 01, 2017 09:52
--- NOTE | 2017-07-01 10:14 | PDOC ---
PROGRESS NOTES Subjective Subjective cough and wheezing Objective Objective Vital Signs Date Time Temp Pulse Resp B/P (MAP) Pulse Ox O2 Delivery O2 Flow Rate FiO2 07/01/17 09:28 68 125/65 07/01/17 08:12 94 Room Air 07/01/17 07:00 97.7 20 97.7 06/30/17 11:00 2.0 Intake and Output 07/01/17 07:00 Intake Total 960 ml Output Total 900 ml Balance 60 ml Intake Oral 960 ml Output Urine Total 900 ml # Voids 2 Physical Exam Abdomen: Normal bowel sounds, Soft Heart: Regular rate, Normal S1 Extremities: No clubbing General: Alert HEENT: Atraumatic Lungs: Other (brooks wheezing) MUSCULOSKELETAL: No deformity Neck: Supple Neuro: Normal speech Psych/Mental Status: Mood NL Skin: No breakdown Diagnosis Problem List Problems Medical Problems: (1) COPD exacerbation Status: Acute Assessment Assessment 1. Acute exacerbation of chronic obstructive pulmonary disease. 2. Acute renal failure, creatinine is 1.4, BUN is 46. 3. Hypertension. 4. Recent hypotension at home. 5. Coronary artery disease with history of LAD stent placement. 6. Right below-knee amputation. 7. Hyperlipidemia. 8. Systolic congestive heart failure with ejection fraction of 30-35% 9. History of critical aortic stenosis with a transaortic valve replacement at [facility] in 06/2016. PLAN: slow improvement iv steroids inc to tid 60 mg. promethazine with olivia spoke with pulmonary sob due to lung problems copd cardiac status stable. DuoNeb for now+budesonide Condition and treatment discussed with the patient and the family extensively. I will start him on IV steroids, continue Zithromax. Consult Dr. Broderick for pulmonary evaluation and management. Consult Cardiology Group for cardiology evaluation and management. For details, please refer to the orders. Recheck labs in a.m. I will hold lisinopril and metoprolol at this time. Because of his persistent cough previously, it would be better to probably switch him to losartan when it is restarted. I will also hold Lasix and potassium at this time and monitor renal function. I will not give any IV fluids as at this time, but just hold diuretics and see how he does. For details, please refer to the orders. Symptoms are mainly respiratory. D/w family,patient.still coughing a lot. Echo ordered. Problems: Plan Plan of Care Problems Medical Problems: (1) COPD exacerbation Status: Acute Comment Review of Relevant I have reviewed the following items taylor (where applicable) has been applied. Labs Laboratory Tests Test 07/01/17 03:15 Sodium Level 141 mmol/L (136-145) Potassium Level 4.3 mmol/L (3.5-5.1) Chloride Level 107 mmol/L (98-107) Carbon Dioxide Level 28 mmol/L (21-32) Anion Gap 6 (6-14) Blood Urea Nitrogen 32 mg/dL (8-26) Creatinine 1.2 mg/dL (0.7-1.3) Estimated GFR (Cockcroft-Gault) 60.6 BUN/Creatinine Ratio 27 (6-20) Glucose Level 116 mg/dL (70-99) Calcium Level 8.7 mg/dL (8.5-10.1) Total Bilirubin 0.4 mg/dL (0.2-1.0) Aspartate Amino Transf (AST/SGOT) 18 U/L (15-37) Alanine Aminotransferase (ALT/SGPT) 29 U/L (16-63) Alkaline Phosphatase 45 U/L (46-116) Total Protein 6.3 g/dL (6.4-8.2) Albumin 3.3 g/dL (3.4-5.0) Albumin/Globulin Ratio 1.1 (1.0-1.7) Microbiology 06/27/17 Blood Culture - Preliminary, Resulted NO GROWTH AFTER 4 DAYS Medications Current Medications Albuterol/ Ipratropium (Duoneb) 3 ml Q4HRS NEB ; Start 07/01/17 at 12:00 Methylprednisolone Sodium Succinate (SOLU-Medrol 125MG VIAL) 60 mg TID IV ; Start 07/01/17 at 14:00 Ondansetron HCl (Zofran) 4 mg PRN Q6HRS PRN IV NAUSEA/VOMITING; Start at 11:30 Vitals/I & O Vital Sign - Last 24 Hours 06/30/17 06/30/17 06/30/17 06/30/17 10:48 11:00 15:00 15:36 Temp 98.2 98.2 98.2 98.2 Pulse 89 68 Resp 22 20 B/P (MAP) 144/79 (100) 160/73 (102) Pulse Ox 96 96 98 98 O2 Delivery Room Air Nasal Cannula Room Air Room Air O2 Flow Rate 2.0 06/30/17 06/30/17 06/30/17 06/30/17 19:00 19:29 19:31 20:01 Temp 98.1 98.1 Pulse 84 Resp 15 B/P (MAP) 122/85 (97) Pulse Ox 92 99 99 O2 Delivery Room Air Room Air Room Air Room Air 06/30/17 07/01/17 07/01/17 07/01/17 23:02 03:00 07:00 08:11 Temp 98.3 98.3 97.7 98.3 98.3 97.7 Pulse 67 64 68 Resp 17 16 20 B/P (MAP) 125/82 (96) 123/81 (95) 125/65 (85) Pulse Ox 95 96 92 94 O2 Delivery Room Air Room Air Room Air Room Air 07/01/17 07/01/17 08:12 09:28 Pulse 68 B/P (MAP) 125/65 Pulse Ox 94 O2 Delivery Room Air Intake and Output 06/30/17 06/30/17 07/01/17 15:00 23:00 07:00 Intake Total 960 ml Output Total 900 ml Balance 60 ml ALLEGRA REYNOLDS MD Jul 01, 2017 10:14
[2017-07-01 11:00] VITALS: BP 137/65
[2017-07-01] MEDS: PROMETH/CODEINE 6.25/10MG 5 ML SYRUP. PO PRN ×2 (14:25→21:30)
[2017-07-01 14:41] VITALS: BP 142/79
[2017-07-01 19:00] VITALS: BP 131/81
[2017-07-01] MEDS: SIMVASTATIN 20 MG TABLET PO SCH (21:20)
[2017-07-01] MEDS: MONTELUKAST SODIUM 10 MG TABLET. PO SCH (21:20)
[2017-07-01 22:33] VITALS: BP 123/83
[2017-07-02 02:54] VITALS: BP 124/86
[2017-07-02] MEDS: IPRATRPIUM/ALBUTEROL 0.5/2.5MG 3 ML NEBU. NEB SCH ×5 (02:59→18:12)
[2017-07-02 06:44] LABS: ALBUMIN 3.2 g/dL (3.4-5.0); CALCIUM 8.9 mg/dL (8.5-10.1); CREATININE 1.3 mg/dL (0.7-1.3); GFR 55.2; POTASSIUM 4.3 mmol/L (3.5-5.1); TOTAL BILIRUBIN 0.5 mg/dL (0.2-1.0); TOTAL PROTEIN 6.3 g/dL (6.4-8.2)
[2017-07-02] MEDS: BUDESONIDE 0.5 MG/2 ML NEBU. NEB SCH ×2 (07:14→18:12)
[2017-07-02 07:20] VITALS: BP 141/82
[2017-07-02] MEDS: LACTOBACILLUS RHAMNOSUS GG 1 CAPSULE. PO SCH ×2 (09:27→20:29)
[2017-07-02] MEDS: CLOPIDOGREL BISULFATE 75 MG TABLET PO SCH (09:27)
[2017-07-02] MEDS: methylPREDNISolone SOD SUCC PF 125 MG/2 ML VIAL. IV SCH ×2 (09:28→20:30)
[2017-07-02] MEDS: AZITHROMYCIN 250 MG TABLET. PO SCH (09:28)
[2017-07-02] MEDS: METOPROLOL SUCC 24HR ER 25 MG TAB.ER.24H. PO SCH (09:28)
--- NOTE | 2017-07-02 10:04 | PDOC ---
PROGRESS NOTES Subjective Subjective slept well ,breathing better today Objective Objective Vital Signs Date Time Temp Pulse Resp B/P (MAP) Pulse Ox O2 Delivery O2 Flow Rate FiO2 07/02/17 09:28 70 141/82 07/02/17 07:20 98.0 17 93 Room Air 98.0 Intake and Output 07/02/17 07:00 Intake Total 680 ml Output Total 600 ml Balance 80 ml Intake Oral 680 ml Output Urine Total 600 ml # Voids 3 Physical Exam Abdomen: Normal bowel sounds, Soft Heart: Regular rate, Normal S1 Extremities: No clubbing General: Alert HEENT: Atraumatic Lungs: Other (brooks wheezing improved) MUSCULOSKELETAL: No deformity Neck: Supple Neuro: Normal speech Psych/Mental Status: Mood NL Skin: No breakdown Diagnosis Problem List Problems Medical Problems: (1) COPD exacerbation Status: Acute Assessment Assessment 1. Acute exacerbation of chronic obstructive pulmonary disease. 2. Acute renal failure, creatinine is 1.4, BUN is 46. 3. Hypertension. 4. Recent hypotension at home. 5. Coronary artery disease with history of LAD stent placement. 6. Right below-knee amputation. 7. Hyperlipidemia. 8. Systolic congestive heart failure with ejection fraction of 30-35% 9. History of critical aortic stenosis with a transaortic valve replacement at [facility] in 06/2016. PLAN: spoke with pulmonary. improvement after bumping steroids iv steroids inc to tid 60 mg. promethazine with codine home in 1-2 days sob due to lung problems copd cardiac status stable. DuoNeb for now+budesonide Problems: Plan Plan of Care Problems Medical Problems: (1) COPD exacerbation Status: Acute Comment Review of Relevant I have reviewed the following items taylor (where applicable) has been applied. Labs Laboratory Tests Test 07/02/17 05:15 Sodium Level 141 mmol/L (136-145) Potassium Level 4.3 mmol/L (3.5-5.1) Chloride Level 106 mmol/L (98-107) Carbon Dioxide Level 27 mmol/L (21-32) Anion Gap 8 (6-14) Blood Urea Nitrogen 31 mg/dL (8-26) Creatinine 1.3 mg/dL (0.7-1.3) Estimated GFR (Cockcroft-Gault) 55.2 BUN/Creatinine Ratio 24 (6-20) Glucose Level 123 mg/dL (70-99) Calcium Level 8.9 mg/dL (8.5-10.1) Total Bilirubin 0.5 mg/dL (0.2-1.0) Aspartate Amino Transf (AST/SGOT) 15 U/L (15-37) Alanine Aminotransferase (ALT/SGPT) 42 U/L (16-63) Alkaline Phosphatase 42 U/L (46-116) Total Protein 6.3 g/dL (6.4-8.2) Albumin 3.2 g/dL (3.4-5.0) Albumin/Globulin Ratio 1.0 (1.0-1.7) Microbiology 06/27/17 Blood Culture - Final, Complete NO GROWTH AFTER 5 DAYS Medications Current Medications Albuterol/ Ipratropium (Duoneb) 3 ml Q4HRS NEB Last administered on 07/02/17 07:14; Start 07/01/17 at 12:00 Methylprednisolone Sodium Succinate (SOLU-Medrol 125MG VIAL) 60 mg TID IV Last administered on 07/02/17 09:28; Start 07/01/17 at 14:00 Promethazine HCl/ Codeine (Phenergan With Codeine) 5 ml PRN Q6HRS PRN PO COUGH Last administered on 07/01/17 21:30; Start 07/01/17 at 10:15 Vitals/I & O Vital Sign - Last 24 Hours 07/01/17 07/01/17 07/01/17 07/01/17 11:00 11:57 14:41 16:18 Temp 97.5 97.9 97.5 97.9 Pulse 67 75 Resp 18 18 B/P (MAP) 137/65 (89) 142/79 (100) Pulse Ox 91 96 93 O2 Delivery Room Air Room Air Room Air Room Air 07/01/17 07/01/17 07/01/17 07/01/17 19:00 19:37 19:40 20:05 Temp 97.9 97.9 Pulse 77 Resp 17 B/P (MAP) 131/81 (98) Pulse Ox 93 95 95 O2 Delivery Room Air Room Air Room Air Room Air 07/01/17 07/01/17 07/02/17 07/02/17 22:33 23:45 02:54 03:00 Temp 98.0 97.6 98.0 97.6 Pulse 80 65 Resp 18 17 B/P (MAP) 123/83 (96) 124/86 (99) Pulse Ox 93 96 94 96 O2 Delivery Room Air Room Air Room Air Room Air 07/02/17 07/02/17 07/02/17 07:16 07:20 09:28 Temp 98.0 98.0 Pulse 70 70 Resp 17 B/P (MAP) 141/82 (101) 141/82 Pulse Ox 95 93 O2 Delivery Room Air Room Air Intake and Output 07/01/17 07/01/17 07/02/17 15:00 23:00 07:00 Intake Total 120 ml 360 ml 200 ml Output Total 600 ml Balance 120 ml 360 ml -400 ml ALLEGRA REYNOLDS MD Jul 02, 2017 10:04
[2017-07-02 10:43] VITALS: BP 137/84
--- NOTE | 2017-07-02 13:19 | PDOC ---
PULMONARY PROGRESS NOTES Subjective feels better Vitals Vital Signs Date Time Temp Pulse Resp B/P (MAP) Pulse Ox O2 Delivery O2 Flow Rate FiO2 07/02/17 11:38 94 Room Air 07/02/17 10:43 97.8 80 18 137/84 (101) 97.8 General: Alert, No acute distress Lungs: Wheezing (much improved) Cardiovascular: S1 Abdomen: Soft Neuro Exam: Alert Extremities: No Edema Skin: Warm Labs Laboratory Tests Test 07/01/17 03:15 07/02/17 05:15 Sodium Level 141 mmol/L (136-145) 141 mmol/L (136-145) Potassium Level 4.3 mmol/L (3.5-5.1) 4.3 mmol/L (3.5-5.1) Chloride Level 107 mmol/L (98-107) 106 mmol/L (98-107) Carbon Dioxide Level 28 mmol/L (21-32) 27 mmol/L (21-32) Anion Gap 6 (6-14) 8 (6-14) Blood Urea Nitrogen 32 mg/dL (8-26) 31 mg/dL (8-26) Creatinine 1.2 mg/dL (0.7-1.3) 1.3 mg/dL (0.7-1.3) Estimated GFR (Cockcroft-Gault) 60.6 55.2 BUN/Creatinine Ratio 27 (6-20) 24 (6-20) Glucose Level 116 mg/dL (70-99) 123 mg/dL (70-99) Calcium Level 8.7 mg/dL (8.5-10.1) 8.9 mg/dL (8.5-10.1) Total Bilirubin 0.4 mg/dL (0.2-1.0) 0.5 mg/dL (0.2-1.0) Aspartate Amino Transf (AST/SGOT) 18 U/L (15-37) 15 U/L (15-37) Alanine Aminotransferase (ALT/SGPT) 29 U/L (16-63) 42 U/L (16-63) Alkaline Phosphatase 45 U/L (46-116) 42 U/L (46-116) Total Protein 6.3 g/dL (6.4-8.2) 6.3 g/dL (6.4-8.2) Albumin 3.3 g/dL (3.4-5.0) 3.2 g/dL (3.4-5.0) Albumin/Globulin Ratio 1.1 (1.0-1.7) 1.0 (1.0-1.7) Laboratory Tests Test 07/02/17 05:15 Sodium Level 141 mmol/L (136-145) Potassium Level 4.3 mmol/L (3.5-5.1) Chloride Level 106 mmol/L (98-107) Carbon Dioxide Level 27 mmol/L (21-32) Anion Gap 8 (6-14) Blood Urea Nitrogen 31 mg/dL (8-26) Creatinine 1.3 mg/dL (0.7-1.3) Estimated GFR (Cockcroft-Gault) 55.2 BUN/Creatinine Ratio 24 (6-20) Glucose Level 123 mg/dL (70-99) Calcium Level 8.9 mg/dL (8.5-10.1) Total Bilirubin 0.5 mg/dL (0.2-1.0) Aspartate Amino Transf (AST/SGOT) 15 U/L (15-37) Alanine Aminotransferase (ALT/SGPT) 42 U/L (16-63) Alkaline Phosphatase 42 U/L (46-116) Total Protein 6.3 g/dL (6.4-8.2) Albumin 3.2 g/dL (3.4-5.0) Albumin/Globulin Ratio 1.0 (1.0-1.7) Medications Active Scripts Medications Dose Route/Sig Max Daily Dose Days Date Category Spironolactone 25 Mg Tablet 25 Mg PO DAILY 06/27/17 Reported [Doxycycline Hyclate] 100 MG Tablet 100 Mg PO BID 05/19/15 Rx Lasix (Furosemide) 40 Mg Tablet 40 Mg PO DAILY 05/19/15 Rx Prinivil (Lisinopril) 20 Mg Tablet 20 Mg PO DAILY 05/19/15 Rx Klor-Con M20 (Potassium Chloride) 20 Meq Tablet.er 20 Meq PO DAILYWBKFT 05/19/15 Rx Symbicort 160-4.5 Mcg Inhaler (Budesonide/Formoterol Fumarate) 10.2 Gm Hfa.aer.ad 160 Mcg INH BID 05/16/15 Reported Albuterol Sulfate Neb Soln (Albuterol Sulfate) 2.5 Mg/3 Ml Vial.neb 2.5 Mg INH PRN Q6HRS PRN 05/16/15 Reported Metoprolol Succinate ( Xl ) (Metoprolol Succinate) 25 Mg Tab.er.24h 25 Mg PO DAILY 05/16/15 Reported Montelukast Sodium Tablet (Montelukast Sodium) 10 Mg Tablet 10 Mg PO HS 05/16/15 Reported Clopidogrel (Clopidogrel Bisulfate) 75 Mg Tablet 75 Mg PO DAILY 05/16/15 Reported Proair Hfa Inhaler (Albuterol Sulfate) 8.5 Gm Hfa.aer.ad 1 Inh INH PRN Q4-6HRS PRN 05/16/15 Reported Simvastatin 20 Mg Tablet 20 Mg PO HS 05/16/15 Reported Impression . 1. Acute exacerbation of chronic obstructive pulmonary disease./ diffuse wheezing, much improved 2. Cough secondary to above. 3. Hypertension. 4. Coronary artery disease with previous left anterior descending stent. 5. Right below knee amputation. 6. Aortic stenosis, status post transaortic valve replacement in in 06/2016. Plan . 1. decrease steroids / continue antibiotics. 2. Nebulized treatments q 4 hr 3. cough suppressants 4. Follow Cardiology input. 5. d/w Dr Nate [facility] in [place] David MD Jul 02, 2017 13:19
--- NOTE | 2017-07-02 14:21 | PDOC ---
CARDIO Progress Notes Date and Time Date of Service 07/02/2017 Time of Evaluation 1415 Subjective Subjective: No Chest Pain, No shortness of breath, No Palpitations, Other ( feels better today) Vitals Vitals Vital Signs Date Time Temp Pulse Resp B/P (MAP) Pulse Ox O2 Delivery O2 Flow Rate FiO2 07/02/17 11:38 94 Room Air 07/02/17 10:43 97.8 80 18 137/84 (101) 97.8 Weight Weight [ ] Input and Output Intake and Output Intake and Output 07/02/17 07:00 Intake Total 680 ml Output Total 600 ml Balance 80 ml Intake Oral 680 ml Output Urine Total 600 ml # Voids 3 Laboratory Labs Laboratory Tests Test 07/02/17 05:15 Sodium Level 141 mmol/L (136-145) Potassium Level 4.3 mmol/L (3.5-5.1) Chloride Level 106 mmol/L (98-107) Carbon Dioxide Level 27 mmol/L (21-32) Anion Gap 8 (6-14) Blood Urea Nitrogen 31 mg/dL (8-26) Creatinine 1.3 mg/dL (0.7-1.3) Estimated GFR (Cockcroft-Gault) 55.2 BUN/Creatinine Ratio 24 (6-20) Glucose Level 123 mg/dL (70-99) Calcium Level 8.9 mg/dL (8.5-10.1) Total Bilirubin 0.5 mg/dL (0.2-1.0) Aspartate Amino Transf (AST/SGOT) 15 U/L (15-37) Alanine Aminotransferase (ALT/SGPT) 42 U/L (16-63) Alkaline Phosphatase 42 U/L (46-116) Total Protein 6.3 g/dL (6.4-8.2) Albumin 3.2 g/dL (3.4-5.0) Albumin/Globulin Ratio 1.0 (1.0-1.7) Microbiology Micro Microbiology 06/27/17 Blood Culture - Final, Complete NO GROWTH AFTER 5 DAYS Physical Exam HEENT: Neck Supple W Full Motion Chest: Symmetric LUNGS: Other (faint wheeze) Heart: S1S2, RRR (off tele monitor) Abdomen: Soft N/T Extremities: No Calf Tenderness Neurology: alert, oriented, follow commands Assessment Assessment 1. AECOPD: better. pulmonary managing 2. Chronic systolic CHF: compensated 3. with prior TAVR: Stable with recent TTE with mild with EF at 50% 4. CAD; PCI/stent to LAD. stable. Recommendations 1. Continue with secondary prevention. Plavix. Restart home lisinopril and zocor. 2. Follow up with outpt certified ophthalmic assistant in 1 month. 3. May restart home lasix if hydration is adequate. POONAM RAHMAN PATHOLOGICAL TECHNICIAN Jul 02, 2017 14:21
[2017-07-02 14:41] VITALS: BP 148/84
[2017-07-02 19:00] VITALS: BP 137/82
[2017-07-02] MEDS: MONTELUKAST SODIUM 10 MG TABLET. PO SCH (20:29)
[2017-07-02] MEDS: BENZONATATE 100 MG CAPSULE. PO PRN (20:29)
[2017-07-02] MEDS: SIMVASTATIN 20 MG TABLET PO SCH (20:29)
[2017-07-02] MEDS: PROMETH/CODEINE 6.25/10MG 5 ML SYRUP. PO PRN (20:29)
[2017-07-02 23:00] VITALS: BP 150/85
[2017-07-03] MEDS: IPRATRPIUM/ALBUTEROL 0.5/2.5MG 3 ML NEBU. NEB SCH ×5 (00:15→15:27)
[2017-07-03 03:00] VITALS: BP 143/85
[2017-07-03] MEDS: BUDESONIDE 0.5 MG/2 ML NEBU. NEB SCH (07:19)
[2017-07-03 07:26] LABS: ALBUMIN 3.3 g/dL (3.4-5.0); ALBUMIN/GLOBULIN RATIO 1.1 (1.0-1.7); CALCIUM 8.7 mg/dL (8.5-10.1); CREATININE 1.4 mg/dL (0.7-1.3); GFR 50.7; TOTAL BILIRUBIN 0.5 mg/dL (0.2-1.0); TOTAL PROTEIN 6.4 g/dL (6.4-8.2)
[2017-07-03 07:36] VITALS: BP 160/78
--- NOTE | 2017-07-03 07:55 | PDOC ---
CARDIOLOGY PROGRESS NOTE SUBJECTIVE: Denies any chest pain. Cough is better. Still soa OBJECTIVE: Vital SIgns: Vital Signs Date Time Temp Pulse Resp B/P (MAP) Pulse Ox O2 Delivery O2 Flow Rate FiO2 07/03/17 07:36 98.0 59 18 160/78 (105) 92 Room Air 98.0 I & O Intake and Output 07/03/17 07:00 Intake Total 1570 ml Balance 1570 ml Intake Oral 1570 ml # Voids 5 Objective: GEN.: No apparent distress. Alert and oriented. HEENT: Head is normocephalic, atraumatic NECK: Supple. LUNGS: Bilateral exp wheezing. HEART: RRR, S1, S2 present. Peripheral pulses intact. 2/6 systolic murmur. ABDOMEN: Soft, nontender. Positive bowel sounds. EXTREMITIES: Without any cyanosis. NEUROLOGIC: Normal speech, normal tone PSYCHIATRIC: Normal affect, normal mood. SKIN: No ulcerations CURRENT MEDICATIONS: Plavix Lisinopril Toprol Simvastatin DIAGNOSTIC TESTING: Cr 1.4 - mildly up from baseline ASSESSMENT: 1. Acute hypoxic resp failure secondary to COPD exacerbation 2. One vessel cAD with chronic systolic HF 3. HTN 4. Dyslipidemia 5. s/p TAVR with Cira valve at in 2016 - mild on repeat echo with MG of 25 mm Hg. Problems: PLAN: 1. No acute need for diuretics (especially in light of increasing cr), will re- evaluate need upon f/u in the office. 2. Hold Toprol XL for now given significant wheezing. Again, will restart on outpt f/u. 3. Will need repeat echo in 3-6 months to assess TAVR valve. Will f/u prn. Thanks. 2 week f/u in the office after OMA GÓMEZ MD Jul 03, 2017 07:55
[2017-07-03] MEDS ORDERED: ASPIRIN ENTERIC COATED 81 MG TABLET.DR. PO SCH (08:00)
[2017-07-03] MEDS ORDERED: LISINOPRIL 20 MG TABLET PO SCH (09:00)
[2017-07-03] MEDS: CLOPIDOGREL BISULFATE 75 MG TABLET PO SCH (09:11)
[2017-07-03] MEDS: methylPREDNISolone SOD SUCC PF 125 MG/2 ML VIAL. IV SCH (09:11)
[2017-07-03] MEDS: AZITHROMYCIN 250 MG TABLET. PO SCH (09:12)
[2017-07-03] MEDS: LACTOBACILLUS RHAMNOSUS GG 1 CAPSULE. PO SCH (09:12)
--- NOTE | 2017-07-03 09:14 | PDOC ---
PULMONARY PROGRESS NOTES Subjective feels better Vitals Vital Signs Date Time Temp Pulse Resp B/P (MAP) Pulse Ox O2 Delivery O2 Flow Rate FiO2 07/03/17 07:36 98.0 59 18 160/78 (105) 92 Room Air 98.0 General: Alert, No acute distress Lungs: Wheezing (resolved) Cardiovascular: S1 Abdomen: Soft Neuro Exam: Alert Extremities: No Edema Skin: Warm Labs Laboratory Tests Test 07/02/17 05:15 07/03/17 06:26 Sodium Level 141 mmol/L (136-145) 141 mmol/L (136-145) Potassium Level 4.3 mmol/L (3.5-5.1) 4.0 mmol/L (3.5-5.1) Chloride Level 106 mmol/L (98-107) 107 mmol/L (98-107) Carbon Dioxide Level 27 mmol/L (21-32) 24 mmol/L (21-32) Anion Gap 8 (6-14) 10 (6-14) Blood Urea Nitrogen 31 mg/dL (8-26) 36 mg/dL (8-26) Creatinine 1.3 mg/dL (0.7-1.3) 1.4 mg/dL (0.7-1.3) Estimated GFR (Cockcroft-Gault) 55.2 50.7 BUN/Creatinine Ratio 24 (6-20) 26 (6-20) Glucose Level 123 mg/dL (70-99) 111 mg/dL (70-99) Calcium Level 8.9 mg/dL (8.5-10.1) 8.7 mg/dL (8.5-10.1) Total Bilirubin 0.5 mg/dL (0.2-1.0) 0.5 mg/dL (0.2-1.0) Aspartate Amino Transf (AST/SGOT) 15 U/L (15-37) 16 U/L (15-37) Alanine Aminotransferase (ALT/SGPT) 42 U/L (16-63) 36 U/L (16-63) Alkaline Phosphatase 42 U/L (46-116) 37 U/L (46-116) Total Protein 6.3 g/dL (6.4-8.2) 6.4 g/dL (6.4-8.2) Albumin 3.2 g/dL (3.4-5.0) 3.3 g/dL (3.4-5.0) Albumin/Globulin Ratio 1.0 (1.0-1.7) 1.1 (1.0-1.7) Laboratory Tests Test 07/03/17 06:26 Sodium Level 141 mmol/L (136-145) Potassium Level 4.0 mmol/L (3.5-5.1) Chloride Level 107 mmol/L (98-107) Carbon Dioxide Level 24 mmol/L (21-32) Anion Gap 10 (6-14) Blood Urea Nitrogen 36 mg/dL (8-26) Creatinine 1.4 mg/dL (0.7-1.3) Estimated GFR (Cockcroft-Gault) 50.7 BUN/Creatinine Ratio 26 (6-20) Glucose Level 111 mg/dL (70-99) Calcium Level 8.7 mg/dL (8.5-10.1) Total Bilirubin 0.5 mg/dL (0.2-1.0) Aspartate Amino Transf (AST/SGOT) 16 U/L (15-37) Alanine Aminotransferase (ALT/SGPT) 36 U/L (16-63) Alkaline Phosphatase 37 U/L (46-116) Total Protein 6.4 g/dL (6.4-8.2) Albumin 3.3 g/dL (3.4-5.0) Albumin/Globulin Ratio 1.1 (1.0-1.7) Medications Active Scripts Medications Dose Route/Sig Max Daily Dose Days Date Category Spironolactone 25 Mg Tablet 25 Mg PO DAILY 06/27/17 Reported [Doxycycline Hyclate] 100 MG Tablet 100 Mg PO BID 05/19/15 Rx Lasix (Furosemide) 40 Mg Tablet 40 Mg PO DAILY 05/19/15 Rx Prinivil (Lisinopril) 20 Mg Tablet 20 Mg PO DAILY 05/19/15 Rx Klor-Con M20 (Potassium Chloride) 20 Meq Tablet.er 20 Meq PO DAILYWBKFT 05/19/15 Rx Symbicort 160-4.5 Mcg Inhaler (Budesonide/Formoterol Fumarate) 10.2 Gm Hfa.aer.ad 160 Mcg INH BID 05/16/15 Reported Albuterol Sulfate Neb Soln (Albuterol Sulfate) 2.5 Mg/3 Ml Vial.neb 2.5 Mg INH PRN Q6HRS PRN 05/16/15 Reported Metoprolol Succinate ( Xl ) (Metoprolol Succinate) 25 Mg Tab.er.24h 25 Mg PO DAILY 05/16/15 Reported Montelukast Sodium Tablet (Montelukast Sodium) 10 Mg Tablet 10 Mg PO HS 05/16/15 Reported Clopidogrel (Clopidogrel Bisulfate) 75 Mg Tablet 75 Mg PO DAILY 05/16/15 Reported Proair Hfa Inhaler (Albuterol Sulfate) 8.5 Gm Hfa.aer.ad 1 Inh INH PRN Q4-6HRS PRN 05/16/15 Reported Simvastatin 20 Mg Tablet 20 Mg PO HS 05/16/15 Reported Impression . 1. Acute exacerbation of chronic obstructive pulmonary disease./ diffuse wheezing, much improved 2. Cough secondary to above. 3. Hypertension. 4. Coronary artery disease with previous left anterior descending stent. 5. Right below knee amputation. 6. Aortic stenosis, status post transaortic valve replacement in in 06/2016. Plan . 1. decrease steroids / continue antibiotics. 2. Nebulized treatments 3. cough suppressants 4. Follow Cardiology input. 5. d/w Dr Nate smart home today CONNER KUHN MD Jul 03, 2017 09:14
[2017-07-03] MEDS ORDERED: LOSA100T6 PO (10:13)
[2017-07-03] MEDS ORDERED: BENZ100C PO (10:13)
[2017-07-03] MEDS ORDERED: PRED50TA PO (10:13)
[2017-07-03] MEDS ORDERED: PROM118S2 PO (10:13)
--- NOTE | 2017-07-03 10:14 | PDOC ---
PROGRESS NOTES Subjective Subjective feels better ready to go home Objective Objective Vital Signs Date Time Temp Pulse Resp B/P (MAP) Pulse Ox O2 Delivery O2 Flow Rate FiO2 07/03/17 09:11 59 160/78 07/03/17 07:36 98.0 18 92 Room Air 98.0 Intake and Output 07/03/17 07:00 Intake Total 1570 ml Balance 1570 ml Intake Oral 1570 ml # Voids 5 Physical Exam Abdomen: Normal bowel sounds, Soft Heart: Regular rate, Normal S1 Extremities: No clubbing General: Alert HEENT: Atraumatic Lungs: Other (brooks wheezing improved) MUSCULOSKELETAL: No deformity Neck: Supple Neuro: Normal speech Psych/Mental Status: Mood NL Skin: No breakdown Diagnosis Problem List Problems Medical Problems: (1) COPD exacerbation Status: Acute Assessment Assessment 1. Acute exacerbation of chronic obstructive pulmonary disease. 2. Acute renal failure, creatinine is 1.4, BUN is 46. 3. Hypertension. 4. Recent hypotension at home. 5. Coronary artery disease with history of LAD stent placement. 6. Right below-knee amputation. 7. Hyperlipidemia. 8. Systolic congestive heart failure with ejection fraction of 30-35% 9. History of critical aortic stenosis with a transaortic valve replacement at [facility] in 06/2016. PLAN: home today on prednisone 50 mg for 1 week spoke with pulmonary. improvement after bumping steroids iv steroids inc to tid 60 mg. promethazine with codine home in 1-2 days sob due to lung problems copd cardiac status stable. DuoNeb for now+budesonide Problems: Plan Plan of Care Problems Medical Problems: (1) COPD exacerbation Status: Acute Comment Review of Relevant I have reviewed the following items taylor (where applicable) has been applied. Labs Laboratory Tests Test 07/03/17 06:26 Sodium Level 141 mmol/L (136-145) Potassium Level 4.0 mmol/L (3.5-5.1) Chloride Level 107 mmol/L (98-107) Carbon Dioxide Level 24 mmol/L (21-32) Anion Gap 10 (6-14) Blood Urea Nitrogen 36 mg/dL (8-26) Creatinine 1.4 mg/dL (0.7-1.3) Estimated GFR (Cockcroft-Gault) 50.7 BUN/Creatinine Ratio 26 (6-20) Glucose Level 111 mg/dL (70-99) Calcium Level 8.7 mg/dL (8.5-10.1) Total Bilirubin 0.5 mg/dL (0.2-1.0) Aspartate Amino Transf (AST/SGOT) 16 U/L (15-37) Alanine Aminotransferase (ALT/SGPT) 36 U/L (16-63) Alkaline Phosphatase 37 U/L (46-116) Total Protein 6.4 g/dL (6.4-8.2) Albumin 3.3 g/dL (3.4-5.0) Albumin/Globulin Ratio 1.1 (1.0-1.7) Microbiology 06/27/17 Blood Culture - Final, Complete NO GROWTH AFTER 5 DAYS Medications Current Medications Aspirin (Ecotrin) 81 mg DAILYWBKFT PO Last administered on 07/03/17 09:11; Start 07/03/17 at 08:00 Lisinopril (Prinivil) 20 mg DAILY PO Last administered on 07/03/17 09:11; Start 07/03/17 at 09:00 Methylprednisolone Sodium Succinate (SOLU-Medrol 125MG VIAL) 60 mg BID IV Last administered on 07/03/17 09:11; Start 07/02/17 at 21:00 Vitals/I & O Vital Sign - Last 24 Hours 07/02/17 07/02/17 07/02/17 07/02/17 10:43 11:38 14:41 15:05 Temp 97.8 98.1 97.8 98.1 Pulse 80 67 Resp 18 18 B/P (MAP) 137/84 (101) 148/84 (105) Pulse Ox 93 94 92 O2 Delivery Room Air Room Air Room Air Room Air 07/02/17 07/02/17 07/02/17 07/02/17 18:13 19:00 20:00 23:00 Temp 97.9 98.1 97.9 98.1 Pulse 75 78 Resp 20 20 B/P (MAP) 137/82 (100) 150/85 (106) Pulse Ox 92 92 O2 Delivery Room Air Room Air Room Air Room Air 07/03/17 07/03/17 07/03/17 07/03/17 00:15 03:00 03:37 07:19 Temp 98.1 98.1 Pulse 72 Resp 20 B/P (MAP) 143/85 (104) Pulse Ox 95 95 O2 Delivery Room Air Room Air Room Air Room Air 07/03/17 07/03/17 07:36 09:11 Temp 98.0 98.0 Pulse 59 59 Resp 18 B/P (MAP) 160/78 (105) 160/78 Pulse Ox 92 O2 Delivery Room Air Intake and Output 07/02/17 07/02/17 07/03/17 15:00 23:00 07:00 Intake Total 480 ml 840 ml 250 ml Balance 480 ml 840 ml 250 ml ALLEGRA REYNOLDS MD Jul 03, 2017 10:14
[2017-07-03 10:42] VITALS: BP 141/82
[2017-07-03 15:16] VITALS: BP 142/92
--- NOTE | 2017-07-07 11:11 | PDOC ---
Provider Note Provider Note Discharge summary dictated. #[id number] ALLEGRA REYNOLDS MD Jul 07, 2017 11:11
--- NOTE | 2017-07-07 19:27 | DS ---
DATE OF DISCHARGE: 07/03/2017 REASON FOR ADMISSION TO THE HOSPITAL: Shortness of breath, chronic obstructive pulmonary disease with exacerbation. CONSULTATIONS: 1. Dr. Broderick. 2. Dr. Pires. PROCEDURES DONE: Echocardiogram. HOSPITAL COURSE: The patient is a 66-year-old male. The patient had aortic valve repair done at last year. He was having shortness of breath with wheezing, was admitted to the hospital, seen by Cardiology, had echocardiogram, which shows ejection fraction of 50%, mild aortic stenosis, had history of endovascular aortic valve repair. The patient was still having a lot of wheezing, short of breath. Pulmonary thought it was from the lung problem not cardiac at this point, was given IV Solu-Medrol, oxygen, breathing treatments and his condition improved after a couple of days. CBC was unremarkable. Chem profile was unremarkable. Urine was negative. Drug screen was negative. Blood cultures negative. Chest x-ray, no heart failure. FINAL DIAGNOSES: 1. Chronic obstructive pulmonary disease with acute exacerbation. 2. History of aortic valve repair for aortic stenosis last year at , showed some moderate aortic stenosis. 3. History of right leg amputation, has prosthesis. 4. Hypertension. 5. Hyperlipidemia. DISPOSITION: Home. DISCHARGE MEDICATIONS: See MRAD for discharge medications. The patient does not smoke and he is up to date on flu and pneumonia shots, and follow up in the office. ALLEGRA REYNOLDS MD DR: CHRIS/brandon JOB#: [id number] / [id number]
== END 2017-07-03 16:15 | disposition home or self-care (01) | DRG 189 ==
LOC: ER 08:00 → 5 SOUTH 09:00
PROVIDERS: ADMIT Internal Medicine; ATTEND Internal Medicine
DX: J96.01 Acute respiratory failure with hypoxia (principal); N17.9 Acute kidney failure, unspecified; I42.9 Cardiomyopathy, unspecified; I13.0 Hypertensive heart and chronic kidney disease with heart failure and stage 1 through stage 4 chronic kidney disease, or unspecified chronic kidney disease; I50.22 Chronic systolic (congestive) heart failure; J44.1 Chronic obstructive pulmonary disease with (acute) exacerbation; E78.5 Hyperlipidemia, unspecified; I35.0 Nonrheumatic aortic (valve) stenosis; I25.10 Atherosclerotic heart disease of native coronary artery without angina pectoris; N18.9 Chronic kidney disease, unspecified; Z87.891 Personal history of nicotine dependence; Z89.511 Acquired absence of right leg below knee; Z95.2 Presence of prosthetic heart valve; Z95.5 Presence of coronary angioplasty implant and graft
CPT/HCPCS: 36415; 71010; 80048; 80053; 80076; 80307; 81001; 82553; 83605; 83690; 83735; 83880; 84443; 84484; 85007; 85025; 85610; 87040; 93005; 93308; 93320; 93325; 94250; 94640; 94760; 96374; J0456; J2930; J7050; J7613; J7620; J7626; Q0144; 99285-25; G0479; J7030

== ENCOUNTER 2019-10-25 08:16 | Emergency (ER) | payer OTHER ==
[~2019-10-25] VITALS: Ht 167.6 cm; Wt 72.0 kg
[~2019-10-25 08:16] MED LIST changes: +ALBU2.5V8 INH; +BENZ100C PO; +LOSA100T14 PO; +MONT10TA49 PO; -MONT10TA9 PO; +PRED50TA PO; -PROAIR HFA8.5 GM INH; +PROM118S5 PO; +SIMV20TA18 PO; -SIMV20TA3 PO; +SPIR25TA5 PO
--- NOTE | 2019-10-25 08:35 | PHYS DOC ---
Past Medical History Past Medical History: Asthma, CAD, CHF, COPD, Hypertension, VA, Other Additional Past Medical Histor: AORTIC STENOSIS Past Surgical History: Angioplasty, Other Additional Past Surgical Histo: RIGHT BKA,TAVR PROCEDURE 07/2016 Smoking Status: Former Smoker Alcohol Use: None Drug Use: None Adult General Chief Complaint Chief Complaint: DYSPNEA/RESPIRATOY DISTRESS HPI HPI 69-year-old male significant history of hypertension, asthma/COPD, coronary artery disease s/p stent, CHF, who presents for evaluation of dyspnea that began this morning. No associated chest pain or significant URI symptoms otherwise. 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 No recent travel or sick contacts. Review of Systems Review of Systems General: No fevers, chills. Eyes: No blurred vision, diplopia. ENT: No nasal congestion, sore throat. CV: No chest pain, edema. Resp: No cough. Reports dyspnea. GI: No abdominal pain, nausea, vomiting. : No dysuria, hematuria. Neuro: No headache, dizziness MSK: No myalgia, arthralgia All other systems were reviewed and found to be within normal limits, except as documented in this note. Current Medications Current Medications Current Medications Medications (Trade) Dose Ordered Sig/Lucía Start Time Stop Time Status Last Admin Dose Admin Albuterol/ Ipratropium (Duoneb) 3 ml 1X ONCE 10/25/19 09:30 10/25/19 09:34 DC 10/25/19 09:30 3 ML Magnesium Sulfate 50 ml @ 25 mls/hr 1X ONCE 10/25/19 09:00 10/25/19 10:59 10/25/19 09:00 25 MLS/HR Methylprednisolone Sodium Succinate (SOLU-Medrol 125MG VIAL) 125 mg 1X ONCE 10/25/19 09:00 10/25/19 09:03 DC 10/25/19 09:21 125 MG Ondansetron HCl (Zofran) 4 mg STK-MED ONCE 10/25/19 09:26 10/25/19 09:26 DC Allergies Allergies Allergies Coded Allergies Type Severity Reaction Last Updated Verified No Known Drug Allergies 05/16/15 No Physical Exam Physical Exam Gen: NAD. Well nourished. Head: NC/AT Eyes: No scleral icterus. No conjunctival injection. ENT: MMM. Posterior OP clear. Neck: Supple. NT. CV: RRR. Peripheral pulses intact. Resp: Rhonchorous diffusely with expiratory wheezing. Abd: Soft. NT. ND. MSK: No peripheral cyanosis. No edema. Right BKA. Neuro: Awake and alert. Skin: Warm. Dry. Psych: Appropriate mood & affect. Current Patient Data Vital Signs Vital Signs Date Time Temp Pulse Resp B/P (MAP) Pulse Ox O2 Delivery O2 Flow Rate FiO2 10/25/19 10:29 96 Room Air 10/25/19 10:14 64 16 143/65 (91) 10/25/19 09:40 97.9 97.9 Lab Values Laboratory Tests Test 10/25/19 08:20 White Blood Count 5.9 x10^3/uL (4.0-11.0) Red Blood Count 4.92 x10^6/uL (4.30-5.70) Hemoglobin 15.4 g/dL (13.0-17.5) Hematocrit 45.3 % (39.0-53.0) Mean Corpuscular Volume 92 fL (79-100) Mean Corpuscular Hemoglobin 31 pg (25-35) Mean Corpuscular Hemoglobin Concent 34 g/dL (31-37) Red Cell Distribution Width 13.6 % (11.5-14.5) Platelet Count 113 x10^3/uL (140-400) L Neutrophils (%) (Auto) 56 % (31-73) Lymphocytes (%) (Auto) 28 % (24-48) Monocytes (%) (Auto) 10 % (0-9) H Eosinophils (%) (Auto) 6 % (0-3) H Basophils (%) (Auto) 1 % (0-3) Neutrophils # (Auto) 3.3 x10^3/uL (1.8-7.7) Lymphocytes # (Auto) 1.6 x10^3/uL (1.0-4.8) Monocytes # (Auto) 0.6 x10^3/uL (0.0-1.1) Eosinophils # (Auto) 0.4 x10^3/uL (0.0-0.7) Basophils # (Auto) 0.0 x10^3/uL (0.0-0.2) Sodium Level 141 mmol/L (136-145) Potassium Level 3.8 mmol/L (3.5-5.1) Chloride Level 103 mmol/L (98-107) Carbon Dioxide Level 27 mmol/L (21-32) Anion Gap 11 (6-14) Blood Urea Nitrogen 30 mg/dL (8-26) H Creatinine 1.2 mg/dL (0.7-1.3) Estimated GFR (Cockcroft-Gault) 60.0 Glucose Level 93 mg/dL (70-99) Calcium Level 8.9 mg/dL (8.5-10.1) Magnesium Level 2.1 mg/dL (1.8-2.4) Troponin I Quantitative < 0.017 ng/mL (0.000-0.055) HF-Qho-A-Type Natriuretic Peptide 468 pg/mL (0-124) H Laboratory Tests 10/25/19 08:20 Laboratory Tests 10/25/19 08:20 EKG EKG EKG at 0829. NSR. HR 64. Nonspecific ST changes with lateral TWI. No STEMI. No significant interval change from prior EKG performed 06/27/17. Interp by me. Radiology/Procedures Radiology/Procedures [] Impressions: CXR: No acute infiltrate Course & Med Decision Making Course & Med Decision Making Pertinent Labs and Imaging studies reviewed. (See chart for details) In summary, 69-year-old male with history of asthma/COPD without chronic oxygen requirement, who presents for evaluation of dyspnea and wheezing, likely secondary to asthma exacerbation. Significant rhonchi and wheezing on examination much improved with multiple DuoNeb, IV magnesium for bronchodilatation as well as Solu-Medrol. Labs are otherwise unrevealing. Troponin negative. Chest x-ray clear. The patient otherwise is well-appearing and nontoxic. He'll be discharged home with outpatient PMD follow-up. Rx prednisone, albuterol MDI. Return precautions given. Dragon Disclaimer Dragon Disclaimer This electronic medical record was generated, in whole or in part, using a voice recognition dictation system. Departure Departure Impression: Primary Impression: COPD exacerbation Disposition: HOME, SELF-CARE Condition: IMPROVED Referrals: ALLEGRA REYNOLDS MD (PCP) Scripts Albuterol Sulfate (PROAIR HFA INHALER) 8.5 Gm Hfa.aer.ad 2 PUFF IH PRN Q4-6HRS PRN for wheezing for 21 Days, #1 INHALER 0 Refills Prov: EDWARD CHAMPION DO 10/25/19 Prednisone (PREDNISONE) 50 Mg Tablet 1 TAB PO DAILY, #5 TAB Prov: EDWARD CHAMPION DO 10/25/19 EDWARD CHAMPION DO Oct 25, 2019 08:35
[2019-10-25 08:37] LABS: BASO % 1 % (0-3); EOS # 0.4 x10^3/uL (0.0-0.7); EOS % 6 % (0-3); HEMATOCRIT 45.3 % (39.0-53.0); HEMOGLOBIN 15.4 g/dL (13.0-17.5); LYMPH # 1.6 x10^3/uL (1.0-4.8); LYMPH % 28 % (24-48); MEAN CORPUSCULAR HEMOGLOBIN 31 pg (25-35); MEAN CORPUSCULAR HGB CONC 34 g/dL (31-37); MEAN CORPUSCULAR VOLUME 92 fL (79-100); MONO # 0.6 x10^3/uL (0.0-1.1); MONO % 10 % (0-9); NEUT # 3.3 x10^3/uL (1.8-7.7); NEUT % 56 % (31-73); PLATELET COUNT 113 x10^3/uL (140-400); RED BLOOD COUNT 4.92 x10^6/uL (4.30-5.70); RED CELL DISTRIBUTION WIDTH 13.6 % (11.5-14.5); WHITE BLOOD COUNT 5.9 x10^3/uL (4.0-11.0)
--- NOTE | 2019-10-25 08:48 | RAD ---
EXAM: CHEST AP ONLY INDICATION: Shortness of air. TECHNIQUE: Single view COMPARISON: 06/27/2017 chest x-ray FINDINGS: The heart size is borderline enlarged.. The great vessels appear unremarkable. There is no hilar or mediastinal mass. The lungs are clear. There is no pleural effusion or pneumothorax. There are no significant osseous abnormalities. IMPRESSION: Borderline cardiomegaly. Otherwise no active cardiopulmonary disease. Electronically signed by: Tulio Beard MD (10/25/2019 8:45 AM) [id number]
[2019-10-25 08:56] LABS: CALCIUM 8.9 mg/dL (8.5-10.1); CREATININE 1.2 mg/dL (0.7-1.3); MAGNESIUM 2.1 mg/dL (1.8-2.4); POTASSIUM 3.8 mmol/L (3.5-5.1)
[2019-10-25] MEDS ORDERED: IPRATRPIUM/ALBUTEROL 0.5/2.5MG 3 ML NEBU. NEB ONE ×2 (09:00→09:30)
[2019-10-25] MEDS ORDERED: MAGNESIUM SULFATE 2GM 50 ML IV ONE (09:00)
[2019-10-25] MEDS ORDERED: methylPREDNISolone SOD SUCC PF 125 MG/2 ML VIAL. IV ONE (09:00)
[2019-10-25] MEDS ORDERED: ONDANSETRON PF 4 MG/2 ML VIAL. ONE (09:26)
[2019-10-25 10:44] VITALS: BP 129/63
[2019-10-25] MEDS ORDERED: ALBU2.5V8 IH ×2 (10:52→11:11)
[2019-10-25] MEDS ORDERED: PRED50TA PO ×2 (10:52→11:11)
--- NOTE | 2019-10-25 21:14 | EKG ---
[facility] [address] [place] [address] Test Date: 2019-10-25 Test Time: 08:29:13 Pat Name: KAL DUBON Department: Room: Gender: M Hour[employer] Shift Manager: : 1950 Requested By: EDWARD CHAMPION Order Number: [id number] Reading MD: Measurements Intervals [place] Rate: 64 P: 41 [place]: 170 QRS: 4 QRSD: 90 T: 157 QT: 420 QTc: 437 Interpretive Statements SINUS RHYTHM LVH WITH REPOLARIZATION ABNORMALITY QRS(T) CONTOUR ABNORMALITY CANNOT RULE OUT ANTEROSEPTAL MYOCARDIAL DAMAGE ABNORMAL ECG No previous ECG available for comparison
== END 2019-10-25 11:20 | disposition home or self-care (01) ==
LOC: ER 08:16
DX: J44.1 Chronic obstructive pulmonary disease with (acute) exacerbation (principal); R06.00 Dyspnea, unspecified; I13.0 Hypertensive heart and chronic kidney disease with heart failure and stage 1 through stage 4 chronic kidney disease, or unspecified chronic kidney disease; N18.9 Chronic kidney disease, unspecified; I50.9 Heart failure, unspecified; I25.2 Old myocardial infarction; Z98.890 Other specified postprocedural states; Z87.891 Personal history of nicotine dependence
CPT/HCPCS: 36415; 71045; 80048; 83735; 83880; 84484; 85025; 93005; 94640; 96374; 99285; J2930; J3475; 99283

== ENCOUNTER → 2021-08-01 | Outpatient (CLI) | payer OTHER ==
[2020-12-18 10:56] VITALS: BP 124/69
[~2021-08-01] MED LIST changes: +ALBU2.5V8 IH; +AZIT250T6 PO; +FLUT16SP NS; -LISI-338 PO; +LISI5TAB15 PO; +METH4TAB2 PO; +POTA-121 PO; -POTA20TA4 PO
== END ==
LOC: PF 07:48
PROVIDERS: ATTEND Internal Medicine Critical Care Medicine
DX: J44.9 Chronic obstructive pulmonary disease, unspecified (principal)
CPT/HCPCS: 94060; 94640; 94729; 94664

== ENCOUNTER → 2021-08-02 | Outpatient (CLI) | payer OTHER ==
[2020-12-18 10:56] VITALS: BP 124/69
--- NOTE | 2021-08-02 09:45 | RAD ---
EXAM: Chest CT without intravenous contrast. HISTORY: Lung mass. TECHNIQUE: Computed tomographic images of the chest were obtained without contrast. Multiplanar refor matting was performed. *One or more of the following individualized dose reduction techniques were utilized for this examina tion: 1. Automated exposure control. 2. Adjustment of the mA and/or kV according to patient size. 3. Use of iterative reconstruction technique. COMPARISON: 12/13/2020. FINDINGS: There is cardiomegaly. There is stable increased fat within the left ventricular wall. Ther e postoperative changes involving the aortic valve. There is calcified atherosclerotic plaque involvi ng the coronary arteries. There is aortic and aortic branch vessel atherosclerosis. There are a few s table prominent mediastinal lymph nodes, largest of which is a 1.3 cm right paratracheal lymph node. There are few partially calcified mediastinal lymph nodes due to granulomatous disease. There is no pneumothorax, pleural effusion or pulmonary infiltrate. There is a 1.8 cm nodule with ecc entric coarse calcification within the medial right lung base. This is not significantly changed when allowing for differences in slice position Averaging. There is a stable 10 mm groundglass nodular opacity with adjacent pleural thickening likel y due to scarring within the lateral right upper lobe. There is stable scarring within the right midd le lobe along the pleural fissures. There is a stable 3.0 cm peripherally calcified lesion within the right hepatic lobe. There is no acu te finding involving the upper abdomen. There is no suspicious osseous lesion. IMPRESSION: 1. 1.8 cm solid nodule with eccentric coarse calcification within the medial right lung base. This is not significantly changed when allowing for differences in slice position and volume averaging. The presence of calcification favors benignity. However, the imaging appearance is not typical for a gran uloma. Repeat short-term follow-up in 3 months is recommended to confirm longer-term stability. 2. Stable suspected pleural parenchymal scarring within the lateral right upper lobe. Attention at th e time of follow-up is recommended. 3. Stable benign peripherally calcified lesion within the right hepatic lobe. Electronically signed by: Bridgette Laboy MD (08/02/2021 9:43 AM) [id number]
== END ==
LOC: CT 08:54
PROVIDERS: ATTEND Internal Medicine Critical Care Medicine
DX: C34.90 Malignant neoplasm of unspecified part of unspecified bronchus or lung (principal); R91.1 Solitary pulmonary nodule; I51.7 Cardiomegaly; I25.10 Atherosclerotic heart disease of native coronary artery without angina pectoris; I70.0 Atherosclerosis of aorta; K76.89 Other specified diseases of liver; I89.8 Other specified noninfective disorders of lymphatic vessels and lymph nodes
CPT/HCPCS: 71250

== ENCOUNTER → 2021-12-18 | Outpatient (CLI) | payer OTHER ==
[2020-12-18 10:56] VITALS: BP 124/69
--- NOTE | 2021-12-19 07:47 | RAD ---
XR CHEST 2V 12/18/2021 Reason: LUNG MASS Comparison: Chest radiograph of 06/24/2021 Technique: Frontal and lateral radiographs the chest Findings: No acute airspace opacity. No pleural effusion or pneumothorax. Cardiac mediastinal silhouette is sta ble. Aortic valve prosthesis is noted. No pulmonary vascular redistribution. Patient has a peripheral ly calcified mass which is seen on comparison to reside in the liver. The partially calcified mass in the medial right costophrenic angle is redemonstrated. Impression: 1. No acute cardiopulmonary process. 2. This chest x-ray cannot serve as the recommended follow-up to evaluate the right lower lobe mass. Electronically signed by: Vitaliy Palomares MD (12/18/2021 2:57 PM) [id number]
== END ==
LOC: RAD 09:20
PROVIDERS: ATTEND Internal Medicine Critical Care Medicine
DX: R91.8 Other nonspecific abnormal finding of lung field (principal); M61.9 Calcification and ossification of muscle, unspecified; Z95.2 Presence of prosthetic heart valve
CPT/HCPCS: 71046